=== PATIENT | female | born 1960 | race Caucasian/White ===

== ENCOUNTER 2017-02-08 13:08 | Observation (INO) | payer BC ==
[~2017-02-08] VITALS: Ht 175.3 cm; Wt 109.8 kg
[2017-02-08] VITALS (7 sets, daily range): BP systolic 128–166; BP diastolic 48–75
[~2017-02-08 13:08] MED LIST: AMLO5TAB2 PO; CALC-697 PO; CYCL10TA9 PO; GLIP10TA13 PO; HYDR-3583 PO; HYDR-3816 PO; LOSA100T7 PO; METF-380 PO; METH1TAB19 PO; NITR-65 PO; PGLT30T PO; SULF1TAB38 PO; [UNRECOGNIZED DRUG - OTHER] SQ
[2017-02-08] MEDS ORDERED: ATEN100T PO (13:19)
[2017-02-08] MEDS ORDERED: NITROGLYCERIN 2% OINT 1 GM UNIT DOSE PACKET TOP ONE (13:45)
[2017-02-08] MEDS ORDERED: ASPIRIN 81 MG CHEW (CHILDREN'S ASA) PO ONE (13:45)
--- NOTE | 2017-02-08 14:03 | ED Chest Pain ---
General Chief Complaint: Respiratory Problems Stated Complaint: SOA Source: patient Exam Limitations: no limitations History of Present Illness Time seen by provider: 13:20 Initial Comments Here with report of shortness of air and chest pain. States that she had chest pain for several minutes morning that was central and she described as a tightness. She has been started on new blood pressure medicine, atenolol, that is not helping her blood pressure. She has been seen by the eye doctor and noted to have to retinal hemorrhages. She follows with Dr. Gorman. Heart rate is in the 40s. Patient states that she feels tired and not well since starting the blood pressure medicine. Timing/Duration: intermittent, 5-6 days Severity/Quality: mild, moderate, tightness Location: central Radiation: no radiation Activities at Onset: activity Prior CP/Workup: no prior chest pain Modifying Factors: worse with exercise ASA po SCALER: No NTG SL SCALER: No Associated Symptoms: No abdominal pain, No back pain, No nausea/vomiting, shortness of breath, No weakness Allergies and Home Medications Allergies Coded Allergies: amoxicillin trihydrate (Unverified Allergy, Unknown, 05/06/11) iodine (Unverified Allergy, Unknown, 05/06/11) Home Medications Amlodipine Besylate 5 Mg Tablet, 5 MG PO DAILY, (Reported) Atenolol 100 Mg Tablet, #90 (Reported) Calcium Carbonate/Vitamin D3 1 Each Tablet, 1 EACH PO BID, (Reported) Cyclobenzaprine HCl 10 Mg Tablet, 10 MG PO Q8H PRN for SPASMS, #14 Ref 0 Prescribed by: ALO BEY on 11/10/152047 Glipizide 10 Mg Tablet, 1 EACH PO DAILY, (Reported) Hydrocodone/Acetaminophen 1 Each Tablet, 1 EACH PO Q4H PRN for PAIN, #20 Ref 0 Prescribed by: ALO BEY on 11/10/152047 Losartan Potassium 100 Mg Tablet, 100 MG PO DAILY, (Reported) Metformin Hcl 1,000 Mg Tablet, 1 EACH PO BID, (Reported) Pioglitazone Hcl 30 Mg Tab, 30 MG PO DAILY, (Reported) Review of Systems Constitutional: see HPI EENTM: No Symptoms Reported Respiratory: See HPI, Shortness of Air, SOA at Rest, Denies Wheezing Cardiovascular: Chest Pain, Denies Palpitations Gastrointestinal: Denies Abdominal Pain, Denies Nausea, Denies Vomiting Genitourinary: No Symptoms Reported Musculoskeletal: no symptoms reported Skin: no symptoms reported Psychiatric/Neurological: No Symptoms Reported Endocrine: No Symptoms Reported All Other Systems Reviewed Negative Unless Noted: Yes Past Rvdsdqx-Dnisir-Adyopk Hx Patient Social History Alcohol Use: Denies Use Recreational Drug Use: No Smoking Status: Never a Smoker Former Smoker/When Quit: Nov 15, 2011 Recent Hopitalizations: No Immunizations Up To Date Tetanus Booster (TDap): More than 5yrs Date of Pneumonia Vaccine: Feb 26, 2014 Seasonal Allergies Seasonal Allergies: No Surgeries HX Surgeries: Yes (Fx left arm, Fx right ankle, arthroscopy left knee) Respiratory Hx Respiratory Disorders: Yes Respiratory Disorders: Sleep Apnea Cardiovascular Hx Cardiac Disorders: Yes Cardiac Disorders: Hypertension Neurological Hx Neurological Disorders: No Reproductive System Hx Reproductive Disorders: No Sexually Transmitted Disease: No Genitourinary Hx Genitourinary Disorders: No Gastrointestinal Hx Gastrointestinal Disorders: Yes Gastrointestinal Disorders: Gastroesophageal Reflux Musculoskeletal Hx Musculoskeletal Disorders: Yes (see surgeries above) Musculoskeletal Disorders: Fractures Endocrine Hx Endocrine Disorders: Yes Endocrine Disorders: Diabetes, Non-Insulin dep HEENT HX ENT Disorders: No Cancer Hx Cancer: No Psychosocial Hx Psychiatric Problems: No Integumentary HX Skin/Integumentary Disorder: No Blood Transfusions Hx Blood Disorders: No Reviewed Nursing Assessment Reviewed/Agree w Nursing PMH: Yes Family Medical History Significant Family History: No Pertinent Family Hx Family Medial History: Cancer 03 FATHER (lung ca) 03 MOTHER (stomach ca) Family history: Cardiovascular disease 03 MOTHER Family history: Diabetes mellitus 09 BROTHER Stroke 03 MOTHER Physical Exam Vital Signs Vital Sign - Last 12Hours 02/08/17 13:08 Temp 97.9 Pulse 45 Resp 18 B/P (MAP) 192/103 O2 Delivery Nasal Cannula Capillary Refill : General Appearance: No Apparent Distress, WD/WN HEENT: PERRL/EOMI, Pharynx Normal Neck: Non Tender, Supple Respiratory: Lungs Clear, Normal Breath Sounds Cardiovascular: No Murmur, Bradycardia Gastrointestinal: Non Tender, Soft Extremity: Normal Range of Motion, Non Tender, No Calf Tenderness, Pedal Edema (1+ to the mid tibia bilateral) Neurologic/Psychiatric: Alert, Oriented x3, No Motor/Sensory Deficits Skin: Normal Color, Warm/Dry Progress/Results/Core Measures Results/Orders Lab Results Laboratory Tests Test 02/08/17 14:16 02/08/17 14:49 Range/Units Sodium Level 139 135-145 MMOL/L Potassium Level 4.3 3.6-5.0 MMOL/L Chloride Level 109 H 98-107 MMOL/L Carbon Dioxide Level 19 L 21-32 MMOL/L Anion Gap 11 5-14 MMOL/L Blood Urea Nitrogen 23 H 7-18 MG/DL Creatinine 0.88 0.60-1.30 MG/DL Estimat Glomerular Filtration Rate > 60 BUN/Creatinine Ratio 26 Glucose Level 141 H 70-105 MG/DL Calcium Level 9.6 8.5-10.1 MG/DL Magnesium Level 1.9 1.8-2.4 MG/DL Total Bilirubin 0.6 0.1-1.0 MG/DL Aspartate Amino Transf (AST/SGOT) 44 H 5-34 U/L Alanine Aminotransferase (ALT/SGPT) 55 0-55 U/L Alkaline Phosphatase 101 40-136 U/L Myoglobin 38.2 10.0-92.0 NG/ML Troponin I < 0.30 <0.30 NG/ML Total Protein 6.7 6.4-8.2 G/DL Albumin 3.8 3.2-4.5 G/DL White Blood Count 8.8 4.3-11.0 10^3/uL Red Blood Count 4.41 4.35-5.85 10^6/uL Hemoglobin 12.6 11.5-16.0 G/DL Hematocrit 38 35-52 % Mean Corpuscular Volume 85 80-99 FL Mean Corpuscular Hemoglobin 29 25-34 PG Mean Corpuscular Hemoglobin Concent 34 32-36 G/DL Red Cell Distribution Width 14.1 10.0-14.5 % Platelet Count 203 130-400 10^3/uL Mean Platelet Volume 11.0 H 7.4-10.4 FL Neutrophils (%) (Auto) 63 42-75 % Lymphocytes (%) (Auto) 29 12-44 % Monocytes (%) (Auto) 7 0-12 % Eosinophils (%) (Auto) 2 0-10 % Basophils (%) (Auto) 0 0-10 % Neutrophils # (Auto) 5.5 1.8-7.8 X 10^3 Lymphocytes # (Auto) 2.5 1.0-4.0 X 10^3 Monocytes # (Auto) 0.6 0.0-1.0 X 10^3 Eosinophils # (Auto) 0.1 0.0-0.3 10^3/uL Basophils # (Auto) 0.0 0.0-0.1 10^3/uL B-Type Natriuretic Peptide 257.3 H <100.0 PG/ML My Orders Orders - ELI MEDRANO MD Cbc With Automated Diff (02/08/17 13:36) Magnesium (02/08/17 13:36) Chest 1 View, Ap/Pa Only (02/08/17 13:36) Ekg Tracing (02/08/17 13:36) Cardiac Profile 1 (02/08/17 13:36) Comprehensive Metabolic Panel (02/08/17 13:36) Myoglobin Serum (02/08/17 13:36) Protime With Inr (02/08/17 13:36) Partial Thromboplastin Time (02/08/17 13:36) O2 (02/08/17 13:36) Monitor-Rhythm Ecg Trace Only (02/08/17 13:36) Lipid Panel (02/09/17 06:00) Aspirin Chewable Tablet (Baby Aspirin Ch (02/08/17 13:45) Saline Lock/Iv-Start (02/08/17 13:36) BNP (02/08/17 13:36) Nitroglycerin Ointment (Nitrobid Ointme (02/08/17 13:45) Hydralazine Injection (Apresoline Inject (02/08/17 16:15) Medications Given in ED Current Medications Medications Dose Ordered Sig/Chetna Route Start Time Stop Time Status Last Admin Dose Admin Aspirin 324 mg ONCE ONCE PO 02/08/17 13:45 02/08/17 13:46 DC 02/08/17 13:45 324 MG Hydralazine HCl 20 mg ONCE ONCE IV 02/08/17 16:15 02/08/17 16:16 DC 02/08/17 16:36 20 MG Nitroglycerin 1 inch ONCE ONCE TOP 02/08/17 13:45 02/08/17 13:46 DC 02/08/17 13:47 1 INCH Vital Signs/I&O Vital Sign - Last 12Hours 02/08/17 13:08 Temp 97.9 Pulse 45 Resp 18 B/P (MAP) 192/103 O2 Delivery Nasal Cannula Progress Note : Progress Note Seen and evaluated. IV, labs, EKG and chest x-ray ordered. ASA 324 mg by mouth. Nitroglycerin paste 1 inch to the chest wall ordered. Monitor patient. Labs reviewed after we're able to finally get labs. We are still unable to get coags. Patient's blood pressure remained elevated despite nitroglycerin. Hydralazine 20 mg IV given. Case discussed with Dr. Vargas at 1610. He accepts patient for admission, observation status. 1651: Discussed case with Dr. Amaral and he accepts patient in consult and agrees with hydralazine. Patient and family agree with plan. ECG Initial ECG Impression Date: Feb 08, 2017 Initial ECG Impression Time: 13:29 Initial ECG Rate: 46 Initial ECG Rhythm: [facility] Diagonstic Imaging: Xray Plain Films/CT/US/NM/MRI: chest Comments NAME: KASSIE VEGA [facility] REC#: [id number] PT STATUS: REG ER : 1960 PHYSICIAN: ELI MEDRANO MD ADMIT DATE: 02/08/17/ER Signed Date of Exam: 02/08/17 CHEST 1 VIEW, AP/PA ONLY EXAMINATION: Portable upright radiograph of the chest. INDICATION: Shortness of breath. COMPARISON: 01/26/2015. FINDINGS: The cardiac size is enlarged. There is mild vascular congestion. No pulmonary edema, however. No effusion or pneumothorax. The mediastinum and kwame appear unremarkable. IMPRESSION: Cardiomegaly with mild vascular congestion. Dictated by: Dictated on workstation # [id number] Dict: 02/08/17 1500 Trans: 02/08/17 1507 [id number] Interpreted by: DOMINGO CALDWELL MD Electronically signed by:DOMINGO CALDWELL MD 02/08/17 1507 Departure Communication Time/Spoke to Admitting Phy: 16:10 Time/Spoke to Consulting Physi: 16:51 Impression Impression: Primary Impression: Malignant hypertension Additional Impression: Chest pain Decision to Admit Reason: Admit from ER (General) Decision to Admit/Date: Feb 08, 2017 Time/Decision to Admit Time: 16:10 Departure-Patient Inst. Referrals: FELICITA GORMAN MD (PCP/Family) Primary Care Physician ELI MEDRANO MD Feb 08, 2017 14:03
[2017-02-08 14:52] LABS: ALANINE AMINOTRANSFERASE 55 U/L (0-55); ALBUMIN 3.8 G/DL (3.2-4.5); ANION GAP 11 MMOL/L (5-14); ASPARTATE AMINO TRANSFERASE 44 U/L (5-34); BILIRUBIN,TOTAL 0.6 MG/DL (0.1-1.0); BLOOD UREA NITROGEN 23 MG/DL (7-18); BUN/CREATININE RATIO 26; CALCIUM 9.6 MG/DL (8.5-10.1); CARBON DIOXIDE 19 MMOL/L (21-32); CHLORIDE 109 MMOL/L (98-107); CREATININE SERUM 0.88 MG/DL (0.60-1.30); GFR ESTIMATED > 60; GLUCOSE 141 MG/DL (70-105); MAGNESIUM 1.9 MG/DL (1.8-2.4); POTASSIUM 4.3 MMOL/L (3.6-5.0); SODIUM 139 MMOL/L (135-145); TOTAL PROTEIN 6.7 G/DL (6.4-8.2)
[2017-02-08 14:59] LABS: MYOGLOBIN SERUM 38.2 NG/ML (10.0-92.0)
[2017-02-08 15:02] LABS: BASOPHILS % (AUTO) 0 % (0-10); EOSINOPHILS # (AUTO) 0.1 10^3/uL (0.0-0.3); EOSINOPHILS % (AUTO) 2 % (0-10); LYMPHOCYTES # (AUTO) 2.5 X 10^3 (1.0-4.0); LYMPHOCYTES % (AUTO) 29 % (12-44); MEAN CORPUSCULAR HEMOGLOBIN 29 PG (25-34); MEAN CORPUSCULAR HGB CONC 34 G/DL (32-36); MEAN CORPUSCULAR VOLUME 85 FL (80-99); MONOCYTES # (AUTO) 0.6 X 10^3 (0.0-1.0); MONOCYTES % (AUTO) 7 % (0-12); NEUTROPHILS # (AUTO) 5.5 X 10^3 (1.8-7.8); NEUTROPHILS % (AUTO) 63 % (42-75); PLATELET COUNT 203 10^3/uL (130-400); RED BLOOD COUNT 4.41 10^6/uL (4.35-5.85); RED CELL DISTRIBUTION WIDTH 14.1 % (10.0-14.5); WHITE BLOOD COUNT 8.8 10^3/uL (4.3-11.0)
--- NOTE | 2017-02-08 15:07 | Diagnostic Imaging Report ---
EXAMINATION: Portable upright radiograph of the chest. INDICATION: Shortness of breath. COMPARISON: 01/26/2015. FINDINGS: The cardiac size is enlarged. There is mild vascular congestion. No pulmonary edema, however. No effusion or pneumothorax. The mediastinum and kwame appear unremarkable. IMPRESSION: Cardiomegaly with mild vascular congestion. Dictated by: Dictated on workstation # [id number]
[2017-02-08] MEDS ORDERED: hydrALAZINE (APESOLINE) 20 MG/ML VIAL IV ONE (16:15)
[2017-02-08] MEDS ORDERED: hydrALAZINE (APRESOLINE) 25 MG TAB PO PRN (20:00)
[2017-02-08 21:07] LABS: INR 1.1 (0.8-1.4); PROTHROMBIN TIME PATIENT 13.4 SEC (12.2-14.7)
[2017-02-08] MEDS ORDERED: NS IV 1000 ML 1,000 ML IV SCH (21:45)
[2017-02-09] VITALS (12 sets, daily range): BP systolic 124–171; BP diastolic 50–82
[2017-02-09 04:03] LABS: BASOPHILS % (AUTO) 0 % (0-10); EOSINOPHILS # (AUTO) 0.2 10^3/uL (0.0-0.3); EOSINOPHILS % (AUTO) 3 % (0-10); LYMPHOCYTES % (AUTO) 28 % (12-44); MEAN CORPUSCULAR HEMOGLOBIN 29 PG (25-34); MEAN CORPUSCULAR HGB CONC 33 G/DL (32-36); MEAN CORPUSCULAR VOLUME 87 FL (80-99); MEAN PLATELET VOLUME 11.1 FL (7.4-10.4); MONOCYTES # (AUTO) 0.6 X 10^3 (0.0-1.0); MONOCYTES % (AUTO) 8 % (0-12); NEUTROPHILS # (AUTO) 4.3 X 10^3 (1.8-7.8); NEUTROPHILS % (AUTO) 61 % (42-75); PLATELET COUNT 186 10^3/uL (130-400); RED BLOOD COUNT 4.14 10^6/uL (4.35-5.85); RED CELL DISTRIBUTION WIDTH 14.3 % (10.0-14.5); WHITE BLOOD COUNT 7.1 10^3/uL (4.3-11.0)
[2017-02-09 04:31] LABS: ALANINE AMINOTRANSFERASE 46 U/L (0-55); ALBUMIN 3.5 G/DL (3.2-4.5); ANION GAP 10 MMOL/L (5-14); ASPARTATE AMINO TRANSFERASE 35 U/L (5-34); BILIRUBIN,TOTAL 0.8 MG/DL (0.1-1.0); BLOOD UREA NITROGEN 22 MG/DL (7-18); BUN/CREATININE RATIO 31; CARBON DIOXIDE 20 MMOL/L (21-32); CHLORIDE 110 MMOL/L (98-107); CHOLESTEROL 144 MG/DL (< 200); DIRECT LDL 76 MG/DL (1-129); GFR ESTIMATED > 60; GLUCOSE 144 MG/DL (70-105); POTASSIUM 4.6 MMOL/L (3.6-5.0); SODIUM 140 MMOL/L (135-145); TOTAL PROTEIN 6.2 G/DL (6.4-8.2); TRIGLYCERIDES 210 MG/DL (<150); VLDL CHOLESTEROL 42 MG/DL (5-40)
[2017-02-09] MEDS: inSUlin ASPART (NovoLOG) 1 UNIT/0.01 ML (CHARGE PER UNIT) SC SCH ×4 (05:32→20:54)
[2017-02-09] MEDS ORDERED: LOSA50TA36 PO (09:12)
[2017-02-09] MEDS ORDERED: NAPR500T3 PO (09:12)
[2017-02-09] MEDS ORDERED: MULT-35 PO (09:12)
--- NOTE | 2017-02-09 10:54 | Consultation-Cardiology ---
HPI-Cardiology Cardiology Consultation: Date of Consultation 02/09/17 Date of Admission 02-08-17 Attending Physician Antwon Vargas MD Admitting Physician Juan Gorman MD Consulting Physician [facility] RODRIGUEZ HPI: Chief Complaint: Chest pain Uncontrolled hypertension Ms. Vega is a 56 year old female admitted to ICU 4 from the ED. She reports that her blood pressure has been running high. She states she had been to see her PCP and he told her to take Atenolol 100mg a day. She reports her blood pressure was still running high at home so she began taking the Atenolol twice a day. She reports increasing shortness of breath over the course of the last few days which has been affecting her ability to carry out her normal activities of daily living. She states yesterday she was up cleaning around her house and she had left sided, localized chest tightness. She states she felt short of breath. She states she sat down and the discomfort resolved. She reports the discomfort lasted for a few minutes. She states she has not had chest discomfort before. She reports she has had no further chest discomfort since admission. She denies any lower extremity edema. She is a poor historian. No c/o palpitations, syncope or near syncope. No c/o fever or chills. No c/o n/v/d. Review of Systems-Cardiology Review of Systems Constitutional: As described under HPI Eyes: No blurred vision, No drainage, No pain, No vision change Ears/Nose/Throat: No ear discharge, No ear pain, No nasal drainage, No ulcerations Respiratory: As described under HPI Cardiovascular: As described under HPI Gastrointestinal: No constipation, No diarrhea, No nausea, No vomiting, No stool coloration changes Genitourinary: No dysuria, No discharge, No frequency, No hematuria, No urgency Skin: No rash, No skin related problems, No ulcerations Psychiatric/Neurological: No anxiety, No depression, No focal weakness, No seizure, No syncope Hematologic: No bleeding abnormalities All Other Systems Reviewed Negative Unless Noted: Yes FFA-Dklgdw-Ixhzyy Hx Patient Social History Alcohol Use: Denies Use Recreational Drug Use: No Smoking Status: Never a Smoker Former smoker/When Quit: Nov 15, 2011 Recent Foreign Travel: No Recent Infectious Disease Expo: No Hospitalization with Isolation: Denies Physical Abuse Screen: No Sexual Abuse: No Immunizations Up To Date Tetanus Booster (TDap): More than 5yrs Date of Pneumonia Vaccine: Feb 26, 2014 Past Medical History PMH As described under Assessment. Family Medical History Family Medical History: She reports her mother had her first RI when she was in her late 50's. Ace reports her mother had a CVA. Family History: Cancer 03 FATHER (lung ca) 03 MOTHER (stomach ca) Family history: Cardiovascular disease 03 MOTHER Family history: Diabetes mellitus 09 BROTHER Stroke 03 MOTHER Allergies and Home Medications Allergies Coded Allergies: amoxicillin trihydrate (Unverified Allergy, Unknown, 05/06/11) iodine (Unverified Allergy, Unknown, 05/06/11) Home Medications Amlodipine Besylate 5 Mg Tablet, 5 MG PO BID, (Reported) Atenolol 100 Mg Tablet, 100 MG PO BID, (Reported) Glipizide 10 Mg Tablet, 10 MG PO DAILY, (Reported) Losartan Potassium 50 Mg Tablet, 50 MG PO BID, (Reported) Metformin Hcl 1,000 Mg Tablet, 1,000 MG PO BID WITH MEALS, (Reported) Multivitamin 1 Each Tablet, 1 TAB PO DAILY, (Reported) Naproxen 500 Mg Tablet, 500 MG PO BID, (Reported) Physical Exam-Cardiology Physical Exam Vital Signs/I&O Vital Sign - Last 12Hours 02/09/17 02/09/17 02/09/17 02/09/17 02:00 02:00 03:00 04:00 Pulse 43 42 43 Resp 13 B/P (MAP) 124/56 128/82 129/52 Pulse Ox 92 93 95 O2 Delivery Nasal Cannula Nasal Cannula Nasal Cannula Nasal Cannula O2 Flow Rate 2.00 2.00 2.00 2.00 02/09/17 02/09/17 02/09/17 02/09/17 04:04 05:00 06:00 07:00 Temp 98.3 Pulse 47 44 44 B/P (MAP) 155/56 132/50 Pulse Ox 96 98 O2 Delivery Nasal Cannula Nasal Cannula Nasal Cannula O2 Flow Rate 2.00 2.00 2.00 02/09/17 02/09/17 08:00 11:52 Temp 97.5 98.3 Pulse 45 48 Resp 20 20 B/P (MAP) 140/54 132/50 Pulse Ox 98 96 O2 Delivery Room Air Room Air Intake and Output 02/09/17 00:00 Intake Total 450 ml Balance 450 ml Capillary Refill : Less Than 3 Seconds Constitutional: appears stated age, No apparent distress, well-developed, well- nourished HEENT: PERRL, No discharge, hearing is well preserved, oral hygience is good, No ulceration, No xanthelasmas are seen Neck: No carotid bruit, carotid pulses are 2 + bilaterally Cardiovascular: regular rate-rhythm, No JVD, S1 and S2 Gastrointestinal: No tender, soft, round, audible bowel sounds, No spleenomegaly Rectal: deferred Extremities: No clubbing, No cyanosis, No significant edema Neurologic/Psychiatric: alert, oriented x 3, power is 5/5 both on sides Skin: No rash, No ulcerations Data Review Labs Laboratory Tests 02/08/17 14:16: Sodium Level 139, Potassium Level 4.3, Chloride Level 109H, Carbon Dioxide Level 19L, Anion Gap 11, Blood Urea Nitrogen 23H, Creatinine 0.88, Estimat Glomerular Filtration Rate > 60, BUN/Creatinine Ratio 26, Glucose Level 141H, Calcium Level 9.6, Magnesium Level 1.9, Total Bilirubin 0.6, Aspartate Amino Transf (AST/SGOT) 44H, Alanine Aminotransferase (ALT/SGPT) 55, Alkaline Phosphatase 101, Myoglobin 38.2, Troponin I < 0.30, Total Protein 6.7, Albumin 3.8 02/08/17 14:49: White Blood Count 8.8, Red Blood Count 4.41, Hemoglobin 12.6, Hematocrit 38, Mean Corpuscular Volume 85, Mean Corpuscular Hemoglobin 29, Mean Corpuscular Hemoglobin Concent 34, Red Cell Distribution Width 14.1, Platelet Count 203, Mean Platelet Volume 11.0H, Neutrophils (%) (Auto) 63, Lymphocytes (%) (Auto) 29 , Monocytes (%) (Auto) 7, Eosinophils (%) (Auto) 2, Basophils (%) (Auto) 0, Neutrophils # (Auto) 5.5, Lymphocytes # (Auto) 2.5, Monocytes # (Auto) 0.6, Eosinophils # (Auto) 0.1, Basophils # (Auto) 0.0, B-Type Natriuretic Peptide 257.3H 02/08/17 20:48: Troponin I < 0.30, Prothrombin Time 13.4, INR Comment 1.1, Activated Partial Thromboplast Time 25 02/08/17 21:42: Glucometer 183H 02/09/17 03:30: White Blood Count 7.1, Red Blood Count 4.14L, Hemoglobin 11.8, Hematocrit 36, Mean Corpuscular Volume 87, Mean Corpuscular Hemoglobin 29, Mean Corpuscular Hemoglobin Concent 33, Red Cell Distribution Width 14.3, Platelet Count 186, Mean Platelet Volume 11.1H, Neutrophils (%) (Auto) 61, Lymphocytes (%) (Auto) 28 , Monocytes (%) (Auto) 8, Eosinophils (%) (Auto) 3, Basophils (%) (Auto) 0, Neutrophils # (Auto) 4.3, Lymphocytes # (Auto) 2.0, Monocytes # (Auto) 0.6, Eosinophils # (Auto) 0.2, Basophils # (Auto) 0.0, Sodium Level 140, Potassium Level 4.6, Chloride Level 110H, Carbon Dioxide Level 20L, Anion Gap 10, Blood Urea Nitrogen 22H, Creatinine 0.70, Estimat Glomerular Filtration Rate > 60, BUN /Creatinine Ratio 31, Glucose Level 144H, Calcium Level 9.0, Total Bilirubin 0.8 , Aspartate Amino Transf (AST/SGOT) 35H, Alanine Aminotransferase (ALT/SGPT) 46 , Alkaline Phosphatase 88, Total Protein 6.2L, Albumin 3.5, Triglycerides Level 210H, Cholesterol Level 144, LDL Cholesterol Direct 76, VLDL Cholesterol 42H, HDL Cholesterol 29L 02/09/17 10:22: Glucometer 164H Radiology NAME: KASSIE VEGA [facility] REC#: [id number] PT STATUS: REG ER : 1960 PHYSICIAN: ELI MEDRANO MD ADMIT DATE: 02/08/17/ER Signed Date of Exam: 02/08/17 CHEST 1 VIEW, AP/PA ONLY EXAMINATION: Portable upright radiograph of the chest. INDICATION: Shortness of breath. COMPARISON: 01/26/2015. FINDINGS: The cardiac size is enlarged. There is mild vascular congestion. No pulmonary edema, however. No effusion or pneumothorax. The mediastinum and kwame appear unremarkable. IMPRESSION: Cardiomegaly with mild vascular congestion. Dictated by: Dictated on workstation # [id number] Dict: 02/08/17 1500 Trans: 02/08/17 1507 [id number] Interpreted by: DOMINGO CALDWELL MD Electronically signed by:DOMINGO CALDWELL MD 02/08/17 1507 ECG Impression ECG Comment SB with RBBB A/P-Cardiology Assessment/Admission Diagnosis Chest discomfort of undetermined etiology Hypertension LVH with RBBB per EKG Moderate left ventricular hypertrophy noted diffusely with normal systolic function. Estimated ejection fraction 60%. Diastolic dysfunction is suggested by Doppler. Left atrial enlargement with prominent right atrium. Mild mitral and tricuspid regurgitation. Estimated pulmonary artery pressure of 30 mmHg. Per echocardiogram by Dr. Read in July 2015 No evidence of significant myocardial ischemia or infarction on this study. Normal global left ventricular systolic function with an ejection fraction of 68 %. Normal regional wall motion. Per MPI of April 2012 Sleep apnea - untreated per pt DM II Family h/o early CAD in her mother (RI in her late 50's) Obesity with BMI of 35.1 Discussion and Recomendations Chest discomfort of undetermined etiology. Multiple risk factors as listed above. We advise further cardiac evaluation with a cardiac cath. Echocardiogram to evaluate structure and LVEF. D/t sinus bradycardia BB is already being held. We will restart her home dose of ARB and Norvasc for blood pressure control. Continue to monitor on tele. Further recommendations will be based on her hospital course. We would like to thank the Hospitalist service for this consult. This consult is being scribed by Ja Emerson APRN on behalf of after discussion regarding plan of care. Clinical Quality Measures AMI/AHF: ASA po Prior to arrival: No DVT/VTE Risk/Contraindication: Risk Factor Score Per Nursin RFS Level Per Nursing on Admit: 2=Moderate Physician Assessment Physician Assessment Lungs: clear Cor: reg A&R * As documented in our note above * Given symptoms suggestive on new-onset angina, in the presence of multiple cor risk factors, card cath appears reasonable. I spoke with her regarding rationale, risks, benefits, potential complications, and alternatives of card cath and possible ad hoc cor intervention. She understands and provides informed consent. Given h/o rash on iodinated contrast, we have pre-treated with iv Solu-medrol * Further recs to base on results of card cath [facility] EMERSON Feb 09, 2017 10:54 BENITA MCLAUGHLIN MD [facility] Feb 09, 2017 13:12
[2017-02-09] MEDS ORDERED: NS IV 1000 ML 1,000 ML IV SCH ×2 (12:00→14:32)
[2017-02-09] MEDS ORDERED: CATHETER FLUSH 10 ML SYR IV PRN (12:00)
[2017-02-09] MEDS ORDERED: diphenhydrAMINE 25 MG TAB (BENADRYL) PO SCH (12:00)
[2017-02-09] MEDS ORDERED: methylPREDNISolone 125 MG (Solu-MEDROL) VIAL IV SCH (12:00)
[2017-02-09] MEDS ORDERED: FAMOTIDINE 20 MG (PEPCID) TABLET PO SCH (12:00)
[2017-02-09] MEDS ORDERED: fentaNYL INJECTION 100 MCG/2 ML AMP ONE (12:25)
[2017-02-09] MEDS ORDERED: MIDAZOLAM 5 MG/5 ML (VERSED) VIAL ONE (12:25)
[2017-02-09] MEDS ORDERED: HEParin (CATH LAB) 2,000 ML IV ONE (12:28)
[2017-02-09] MEDS ORDERED: LIDOCAINE 1% INJ 20 ML (XYLOCAINE) VIAL ONE (12:28)
[2017-02-09] MEDS ORDERED: NS IV 1000 ML 1,000 ML ONE (12:28)
--- NOTE | 2017-02-09 13:16 | History & Physical-Hospitalist ---
HPI History of Present Illness: HPI/Chief Complaint The patient is a 56-year-old white female patient of Dr. Markham. She presented to the emergency room yesterday afternoon with chest pain, headache, and elevated blood pressure. She reports that she had recently had treatment in [place] by a retinal specialist for hemorrhages. She states that she has been diabetic since age 16 although she has never taken insulin except in periods of stress. She had been hypertensive but recently this seems to have accelerated. Her retinal specialist was concerned that her blood pressure was that high. She had apparently had amlodipine and atenolol added to her regimen. This had added some improvement but not enough. While in the emergency room Dr. Reid gave her an additional dose of beta charley which dropped her heart rate from the 60s to the 40s. It has remained at that point. The chest pain that she described had cleared in the emergency room. At the time of my visit her blood pressure was 170/51 with a heart rate in the 40s. Source: patient Exam Limitations: no limitations Date Seen 02/09/17 Attending Physician Antwon Winters MD PCP Juan Gorman MD Referring Physician Date of Admission Feb 08, 2017 at 16:45 Home Medications & Allergies Home Medications Reviewed patient Home Medication Reconciliation Form Allergies Allergies Coded Allergies amoxicillin trihydrate (Unverified Allergy, Unknown, 05/06/11) iodine (Unverified Allergy, Unknown, 05/06/11) Past Cgagitz-Geoumh-Gnjwum Hx Patient Social History Alcohol Use: Denies Use Recreational Drug Use: No Smoking Status: Never a Smoker Former smoker/When Quit: Nov 15, 2011 Physical Abuse Screen: No Sexual Abuse: No Recent Foreign Travel: No Contact w/other who traveled: No Recent Hopitalizations: No Recent Infectious Disease Expo: No Immunizations Up To Date Tetanus Booster (TDap): More than 5yrs Date of Pneumonia Vaccine: Feb 26, 2014 Seasonal Allergies Seasonal Allergies: No Surgeries HX Surgeries: Yes (Fx left arm, Fx right ankle, arthroscopy left knee) Respiratory Hx Respiratory Disorders: Yes Cardiovascular Hx Cardiovascular Disorders: Yes Cardiac Disorders: Hypertension Neurological Hx Neurological Disorders: No Reproductive System Hx Reproductive Disorders: No Sexually Transmitted Disease: No Genitourinary Hx Genitourinary Disorders: No Gastrointestinal Hx Gastrointestinal Disorders: Yes Gastrointestinal Disorders: Gastroesophageal Reflux Musculoskeletal Hx Musculoskeletal Disorders: Yes (see surgeries above) Musculoskeletal Disorders: Fractures Endocrine Hx Endocrine Disorders: Yes Endocrine Disorders: Diabetes, Non-Insulin dep HEENT HX ENT Disorders: No Cancer Hx Cancer: No Psychosocial Hx Psychiatric Problems: No Integumentary HX Skin/Integumentary Disorder: No Blood Transfusions Hx Blood Disorders: No Reviewed Nursing Assessment Reviewed/Agree w Nursing PMH: Yes Family Medical History Significant Family History: No Pertinent Family Hx Family Hx: Cancer 03 FATHER (lung ca) 03 MOTHER (stomach ca) Family history: Cardiovascular disease 03 MOTHER Family history: Diabetes mellitus 09 BROTHER Stroke 03 MOTHER Review of Systems Constitutional: see HPI EENTM: other (retinal vascular problems) Respiratory: no symptoms reported Cardiovascular: see HPI, chest pain Gastrointestinal: no symptoms reported Genitourinary: no symptoms reported Musculoskeletal: no symptoms reported Skin: no symptoms reported Psychiatric/Neurological: No Symptoms Reported Physical Exam Physical Exam Vital Signs Vital Sign - Last 12Hours 02/08/17 02/08/17 13:08 17:50 Temp 97.9 Pulse 45 Resp 18 B/P (MAP) 192/103 Pulse Ox 95 O2 Delivery Nasal Cannula Capillary Refill : Less Than 3 Seconds General Appearance: No Apparent Distress, WD/WN Eyes: Bilateral Eye Normal Inspection HEENT: Normal ENT Inspection Neck: Normal Inspection Respiratory: Chest Non Tender, Lungs Clear, Normal Breath Sounds, No Accessory Muscle Use, No Respiratory Distress Cardiovascular: Other (Bradycardia) Gastrointestinal: Normal Bowel Sounds, No Organomegaly, No Pulsatile Mass, Non Tender, Soft, Other (obese) Extremity: Other (bilateral 2 plus posterior tibial pulses) Skin: Normal Color, Warm/Dry Lymphatic: No Adenopathy Results Results/Procedures Lab Laboratory Tests 02/08/17 14:16 02/08/17 14:49 02/09/17 03:30 Assessment/Plan Admission Diagnosis 1.accelerated hypertension. 2.diabetes mellitus type II of 40 years duration. 3.chest pain. 4.retinal microaneurysms/bleed Assessment and Plan Increased dose of beta blockers produced bradycardia. Cardiac consultation is proceeding and angiography is suggested. Clinical Quality Measures AMI/AHF: ASA po Prior to arrival: No DVT/VTE Risk/Contraindication: Risk Factor Score Per Nursin RFS Level Per Nursing on Admit: 2=Moderate ANTWON WINTERS MD Feb 09, 2017 13:15
[2017-02-09] MEDS ORDERED: diphenhydrAMINE 50 MG/ML INJ (BENADRYL) ONE (13:30)
[2017-02-09] MEDS ORDERED: FAMOTIDINE 20MG/2ML IV (PEPCID) ONE (13:31)
[2017-02-09] MEDS ORDERED: PATIENT MAY USE OWN MEDS, ALL PO SCH (14:45)
[2017-02-09] MEDS: amLODIPine 5 MG (NORVASC) TAB PO SCH (20:54)
[2017-02-09] MEDS: LOSARTAN 50 MG (COZAAR) TAB PO SCH (20:54)
[2017-02-10 00:15] VITALS: BP 153/63
[2017-02-10 04:27] VITALS: BP 160/63
[2017-02-10] MEDS: inSUlin ASPART (NovoLOG) 1 UNIT/0.01 ML (CHARGE PER UNIT) SC SCH (05:12)
[2017-02-10 07:56] VITALS: BP 164/58
[2017-02-10] MEDS: amLODIPine 5 MG (NORVASC) TAB PO SCH (08:16)
[2017-02-10] MEDS: LOSARTAN 50 MG (COZAAR) TAB PO SCH (08:16)
--- NOTE | 2017-02-10 08:29 | Progress Note-Cardiology ---
Cardiology SOAP Progress Note Subjective: States she feels better today. No c/o right groin discomfort. Wants to go home. No c/o CP or SOB. No c/o palpitations, syncope or near syncope. Objective: I&O/Vital Signs Vital Sign - Last 12Hours 02/10/17 02/10/17 07:00 07:56 Temp 98.6 Pulse 58 56 Resp 18 B/P (MAP) 164/58 Pulse Ox 95 O2 Delivery Room Air Intake and Output 02/10/17 00:00 Intake Total 450 ml Balance 450 ml Weight (Pounds): 242 Weight (Ounces): 1.0 Weight (Calculated Kilograms): 109.804045 Side: right Groin site without hematoma: Yes Condition: DP/PT pulses palpable, extremity w/d/p Bruising: mild bruising Constitutional: appears stated age, No apparent distress, well-developed, well- nourished Cardiovascular: regular rate-rhythm, No JVD, S1 and S2 Gastrointestional: No tender, soft, round, audible bowel sounds, No spleenomegaly Extremities: No clubbing, No cyanosis, No significant edema Neurologic/Psychiatric: alert, oriented x 3, power is 5/5 both on sides Skin: No rash, No ulcerations Results/Procedures: Labs Laboratory Tests 02/09/17 20:33: Glucometer 332H 02/10/17 05:04: Glucometer 276H Procedures S/P cardiac cath of 02-09-17. Please refer to Dr. Amaarl's cardiac cath report for details. A/P: Assessment: Cardiac cath of 02-09-17 showed no angiographically significant CAD; LVEF 60-65% Episode of chest discomfort of undetermined etiology - does not appear cardiac in origin based on cardiac cath of 02-09-17 Hypertension. No evidence of any significant renal artery stenosis on abdominal aortic angio of 02-09-17 LVH with RBBB per EKG Moderate left ventricular hypertrophy noted diffusely with normal systolic function. Estimated ejection fraction 60%. Diastolic dysfunction is suggested by Doppler. Left atrial enlargement with prominent right atrium. Mild mitral and tricuspid regurgitation. Estimated pulmonary artery pressure of 30 mmHg. Per echocardiogram by Dr. Read in July 2015 No evidence of significant myocardial ischemia or infarction on this study. Normal global left ventricular systolic function with an ejection fraction of 68 %. Normal regional wall motion. Per MPI of April 2012 Sleep apnea - untreated per pt DM II Family h/o early CAD in her mother ([place] in her late 50's) Obesity with BMI of 35.1 Plan: Episode of chest discomfort does not appear cardiac in nature based on cardiac cath of 02-09-17. Blood pressure not well controlled - Not a good candidate for BB d/t what seems to be sinus bradycardia at baseline which is made more prominent with BB. Will add dyazide. BMP in a week Advise treatment of sleep apnea as an outpatient Risk factor modification discussed Out pt f/u Physician Assessment Physician Assessment Lungs: clear Cor: reg A&R * As documented in our note above that I updated at the time of this writing * I spoke with her in detail and explained the findings of card cath and aortic angio * I reviewed and recommend cor risk factor modification * I reviewed management plan for hypertension * I advised close outpatient f/u, including lab work after initiation or recent meds * I answered her questions in detail Clinical Quality Measures AMI/AHF: ASA po Prior to arrival: [facility] Jarrett Feb 10, 2017 08:29 BENITA AMARAL MD FACP FAC CCDS Feb 10, 2017 17:04
[2017-02-10] MEDS ORDERED: TRIA1TAB5 PO (08:44)
[2017-02-10] MEDS ORDERED: TRIAMTERENE/HCTZ 75-50 (MAXZIDE,DYAZIDE) TABLET PO SCH (09:00)
--- NOTE | 2017-02-10 10:50 | Discharge Summary-Hospitalist ---
Diagnosis/Chief Complaint Date of Admission Feb 08, 2017 at 16:45 Date of Discharge Feb 10, 2017 at 10:00 Discharge Date: Feb 10, 2017 Admission Diagnosis 1.accelerated hypertension. 2.diabetes mellitus type II of 40 years duration. 3.chest pain. 4.retinal microaneurysms/bleed Discharge Diagnosis 1.accelerated hypertension. 2.diabetes mellitus type II of 40 years duration. 3.chest pain w/negative cardiac cath 02/09/[address] Amaral. 4.retinal microaneurysms/bleed Reason Hospital Visit/Course The patient is a 56-year-old white female patient of Dr. Markham. She presented to the emergency room yesterday afternoon with chest pain, headache, and elevated blood pressure. She reports that she had recently had treatment in [place] by a retinal specialist for hemorrhages. She states that she has been diabetic since age 16 although she has never taken insulin except in periods of stress. She had been hypertensive but recently this seems to have accelerated. Her retinal specialist was concerned that her blood pressure was that high. She had apparently had amlodipine and atenolol added to her regimen. This had added some improvement but not enough. While in the emergency room Dr. Reid gave her an additional dose of beta charley which dropped her heart rate from the 60s to the 40s. It has remained at that point. The chest pain that she described had cleared in the emergency room. At the time of my visit her blood pressure was 170/51 with a heart rate in the 40s. 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 Cardiac meds arranged. Patient Interview: Pt states that she is ready to go home. Pt's PCP is Dr. Gorman and Dr. 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 Pt uses [facility]. Pt plans to drive herself home. Pt states that she does not need any Insulin. AFVSS, Pleasant, O x 3 RRR, CTAB no edema Plan: Review meds DC with close follow-ups with Drs. Gorman and Munir Scribed by Mannie Chavis under the direct supervision of Dr. Winter. Discharge Summary Discharge Physical Examination Allergies: Coded Allergies: amoxicillin trihydrate (Unverified Allergy, Unknown, 05/06/11) iodine (Unverified Allergy, Unknown, 05/06/11) Vitals & I&Os Vital Signs Date Time Temp Pulse Resp B/P (MAP) Pulse Ox O2 Delivery O2 Flow Rate FiO2 02/10/17 07:56 98.6 56 18 164/58 95 Room Air 02/09/17 06:00 2.00 Hospital Course Labs (last 24 hrs) Laboratory Tests 02/09/17 20:33: Glucometer 332H 02/10/17 05:04: Glucometer 276H Pending Labs Laboratory Tests 02/10/17 05:04: Glucometer 276 Discharge Home Medications: Active Scripts Active Triamterene-Hctz 75-50 mg Tab (Triamterene/Hydrochlorothiazid) 1 Each Tablet 0.5 Ea PO DAILY Reported Daily Multiple Vitamin (Multivitamin) 1 Each Tablet 1 Tab PO DAILY Losartan Potassium 50 Mg Tablet 50 Mg PO BID Amlodipine Besylate 5 Mg Tablet 5 Mg PO BID Glipizide 10 Mg Tablet 10 Mg PO DAILY Metformin 1000 Mg (Metformin HCl) 1,000 Mg Tablet 1,000 Mg PO BID WITH MEALS Instructions to patient/family Please see electonic discharge instructions given to patient. Clinical Quality Measures AMI/AHF: ASA po Prior to arrival: No DVT/VTE Risk/Contraindication: Risk Factor Score Per Nursin RFS Level Per Nursing on Admit: 2=Moderate TERRENCE WINTER DO Feb 10, 2017 10:50
--- NOTE | 2017-02-10 11:24 | CARDIAC CATHETERIZATION ---
PROCEDURE PHYSICIAN: BENITA MCLAUGHLIN DATE OF PROCEDURE: 02/08/2017 Carlota Trevino Is a 56-year-old lady who was hospitalized with symptoms of unstable angina and malignant hypertension. She has multiple coronary artery disease risk factors. Cardiac catheterization was carried out today after having obtained an informed consent. PROCEDURE: She is brought to the cardiac catheterization in a fasting state. She was treated with intravenous steroids, diphenhydramine and famotidine; this is because she has a history of contrast allergy consisting of a rash. The right groin was prepared and draped in the usual sterile fashion. 1% lidocaine was used for local anesthesia. Modified Seldinger technique was used to advance a 5-Albanian sheath in the right femoral artery. Angiography of the right femoral artery was carried out through the sheath. A 5-Albanian JL4 catheter was used for left coronary angiography. A 5-Albanian JR4 was used for the right coronary angiography. A 5-Albanian pigtail catheter was used for left heart catheterization, left ventricular angiography. A pigtail catheter was pulled back to the aortic arch angiography was performed. Pigtail catheter was pulled back to the level of L1 and abdominal aortic angiography was performed. The catheter was removed. Mynx was used to achieve hemostasis. The patient tolerated the procedure well. HEMODYNAMICS: Left ventricular end diastolic pressure following coronary angiography was 21 mmHg. There was no significant pressure gradient on pullback across the aortic valve. Ascending aortic pressure was 156/57 with a mean of 94 mmHg. LEFT VENTRICULAR ANGIOGRAPHY: Left ventricular angiography was carried out in the right anterior oblique projection. Global left ventricular systolic function is normal. No regional wall motion abnormalities are seen. Left ventricular ejection fraction is approximately 65%. There does not appear to be significant mitral regurgitation. AORTIC ARCH ANGIOGRAPHY: Aortic arch angiography did not indicate any significant thoracic aortic aneurysm or dissection. The neck arteries, to the extent seen, do not exhibit any significant disease. ABDOMINAL AORTIC ANGIOGRAPHY: Abdominal aortic angiography did not indicate any distinct abdominal aortic aneurysm or dissection. The mesenteric vessels and the renal vessels do not exhibit significant stenosis, to the extent seen. CORONARY ANGIOGRAPHY: The left main coronary artery, left anterior descending artery, left circumflex artery, right coronary artery are all angiographically normal. Right coronary artery is dominant. CONCLUSIONS: 1. Angiographically normal coronary arteries. 2. Normal global left ventricular systolic function with an ejection fraction of approximately 60 to 65%. 3. Elevated left ventricular end diastolic pressure, indicative of diastolic dysfunction of the left ventricle. 4. No evidence of any abdominal aortic or thoracic aortic aneurysm or dissection. 5. No evidence of any significant renal artery stenosis. DISCUSSION AND RECOMMENDATION: Based of the results of this study, it appears appropriate to continue a conservative approach. Risk factor modification has been reviewed and outpatient follow-up is advised. Job ID: [id number] Dictated Date: 02/09/2017 14:21:03 Sales Store Checker Date: 02/10/2017 11:15:27 / cassy
--- NOTE | 2017-02-11 13:44 | ECHOCARDIOGRAPHY REPORT ---
PROCEDURE PHYSICIAN: BENITA MCLAUGHLIN DATE OF PROCEDURE: 02/09/2017 TWO DIMENSIONAL ECHOCARDIOGRAM REPORT PRIMARY PHYSICIAN: Dr. Gorman OTHER PHYSICIAN: ATTENDING PHYSICIAN: Dr. Vargas REFERRING PHYSICIAN: ORDERING PHYSICIAN: Vanessa Emerson APRN INDICATION FOR THE PROCEDURE: Shortness of breath, chest discomfort MEASUREMENTS DERIVED VALUES LV DIAMETER (LAX) NORMALS NORMALS Diastolic 5.3 (3.6-5.2) Eject. Fract. (60%+/-6%) Systolic (2.3-3.9) Diastolic Vol. % Shortening (0.22-0.42) Systolic Vol. Aortic Root 3.5 IVS THICKNESS Diastolic 1.3 (0.6-1.1) LVPW THICKNESS Diastolic 1.3 (0.6-1.1) LA DIAMETER Systolic 4. (2.1-3.7) DESCRIPTION: Two-dimensional echocardiography shows normal left ventricular systolic function with normal regional wall motion. Aortic, mitral and tricuspid valve leaflets show good leaflet excursion. There is no significant pericardial effusion. There is mild concentric left ventricular hypertrophy. There is no Doppler evidence of any significant valvular stenosis. Doppler imaging indicates trivial, mitral and tricuspid regurgitation. Pulmonary artery systolic pressure is estimated to be within normal limits. CONCLUSION: 1. Mild concentric left ventricular hypertrophy. 2. Normal global left ventricular systolic function with an ejection fraction of approximately 60%. 3. Trivial, mitral and tricuspid regurgitation. 4. No evidence of significant valvular stenosis. 5. Pulmonary artery systolic pressure is estimated to be within normal limits. Job ID: [id number] Dictated Date: 02/11/2017 11:40:09 Hospital Attendant Date: 02/11/2017 13:35:30 / cassy
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
--- OUTSIDE RECORDS SUMMARY | 2017-02-23 19:07 | XMS REPORT | Continuity of Care Document ---
Author Author [facility] Organization [facility] Address Unknown Phone Unavailable Allergies Active Description Code Type Severity Reaction Onset Reported/Identified Relationship to Patient Clinical Status Yes amoxicillin trihydrate [id number] Drug Allergy Unknown N/A 05/06/2011 Yes iodine [id number] Drug Allergy Unknown N/A 05/06/2011 Medications Problems [...] WINTERS MD Ot I16.0 HYPERTENSIVE URGENCY 02/10/2017 CYNHTIA WINTERS MD Ot I45.10 UNSPECIFIED RIGHT BUNDLE-BRANCH BLOCK 02/10/2017 CYNTHIA WINTERS MD Ot I51.7 CARDIOMEGALY 02/10/2017 CYNTHIA WINTERS MD Ot R07.9 CHEST PAIN, UNSPECIFIED 02/10/2017 CYNTHIA WINTERS MD Ot Z68.35 BODY MASS INDEX (BMI) 35.0-35.9, ADULT 02/10/2017 CYNTHIA WINTERS MD Ot Z79.84 PENITENTIARY (CURRENT) USE OF ORAL HYPOGLYC 02/10/2017 CYNTHIA WINTERS MD Ot Z79.899 OTHER PENITENTIARY (CURRENT) DRUG THERAPY 02/17/2017 Ot 786.2 COUGH [...] Status Pt. Type Provider Facility Loc./Unit Complaint [id number] 02/08/2017 16:45:00 2016 10:00:00 DIS Inpatient CYNTHIA WINTERS MD [facility] ICU MALIGNANT HTN,CHEST PAIN [id number] 01/22/2016 15:24:00 2015 14:26:00 DIS Outpatient RONNIE MONTALVO MD [facility] REHAB LUMBAR DDD [id number] 07/16/2015 09:01:00 2014 23:59:59 CLS Outpatient FELICITA SHARP MD [facility] CARD EPISODIC SUDDEN ONSET [id number] 07/12/2015 11:05:00 2014 23:59:59 CLS Outpatient FELICITA SHARP MD [facility] LAB DIZZINESS [id number] 02/25/2014 14:16:00 2013 09:15:00 DIS Inpatient FELICITA SHARP MD [facility] 4TH PERSISTENT N/V [id number] 08/23/2013 09:26:00 2012 23:59:59 CLS Outpatient FELICITA SHARP MD [facility] RAD L KNEE PAIN [id number] 08/18/2013 09:35:00 2012 23:59:59 CLS Outpatient FELICITA SHARP MD [facility] RAD PAIN IN LEFT MEDIAL KNEE [id number] 02/17/2017 10:29:00 ACT Outpatient UMU SANTANA QUOTE CLERK [facility] LAB I10 [id number] 11/10/2015 18:36:00 Document Registration [id number] 07/12/2015 11:05:00 Document Registration [id number] 07/12/2015 11:05:00 Document Registration [id number] 07/12/2015 11:05:00 Document Registration [id number] 07/12/2015 11:05:00 Document Registration [id number] 07/12/2015 11:05:00 Document Registration [id number] 08/04/2012 15:15:00 Document Registration [id number] 08/03/2012 15:32:00 Document Registration [id number] 05/19/2012 08:42:00 Document Registration [id number] 05/06/2012 08:57:00 Document Registration [id number] 12/16/2011 11:19:00 Document Registration [id number] 04/23/2011 12:10:00 Document Registration
== END 2017-02-10 09:26 | disposition home or self-care (01) ==
LOC: DELPENDDIS → EDUNIT# 13:08 → ER 13:10 → UNDOADMOB 16:45 → ICU 16:45 → 4TH 02-09 15:33 → ICU 02-09 15:33 → UNDODISOB 02-10 10:00
PROVIDERS: ADMIT Internal Medicine; ATTEND Internal Medicine
DX: I16.0 Hypertensive urgency (principal); R07.9 Chest pain, unspecified; H35.63 Retinal hemorrhage, bilateral; E11.9 Type 2 diabetes mellitus without complications; I51.7 Cardiomegaly; I45.10 Unspecified right bundle-branch block; G47.30 Sleep apnea, unspecified; E66.9 Obesity, unspecified; Z68.35 Body mass index [BMI] 35.0-35.9, adult; Z79.84 Long term (current) use of oral hypoglycemic drugs; Z79.899 Other long term (current) drug therapy
CPT/HCPCS: 36221; 36415; 71010; 75625; 80053; 80061; 82962; 83735; 83874; 83880; 84484; 85025; 85610; 85730; 93005; 93041; 93306; 93458; 96374; G0378

== ENCOUNTER → 2017-02-17 | Outpatient (CLI) | payer BC ==
[~2017-02-17] MED LIST changes: +ATEN100T PO; +LOSA50TA36 PO; +MULT-35 PO; +NAPR500T3 PO; +TRIA1TAB5 PO
[2017-02-17 11:08] LABS: CALCIUM 10.3 MG/DL (8.5-10.1); CREATININE SERUM 1.37 MG/DL (0.60-1.30); MAGNESIUM 2.2 MG/DL (1.8-2.4); POTASSIUM 4.7 MMOL/L (3.6-5.0)
== END ==
LOC: LAB 10:29
PROVIDERS: ATTEND Nurse Practitioner Family
DX: I10 Essential (primary) hypertension (principal)
CPT/HCPCS: 36415; 80048; 83735

== ENCOUNTER → 2017-03-10 | Outpatient (CLI) | payer BC ==
[2017-03-10 16:16] LABS: CALCIUM 10.1 MG/DL (8.5-10.1); CREATININE SERUM 1.6 MG/DL (0.60-1.30); MAGNESIUM 2.3 MG/DL (1.8-2.4); POTASSIUM 3.8 MMOL/L (3.6-5.0)
== END ==
LOC: LAB 15:27
PROVIDERS: ATTEND Internal Medicine Cardiovascular Disease
DX: I10 Essential (primary) hypertension (principal); E66.09 Other obesity due to excess calories; E11.21 Type 2 diabetes mellitus with diabetic nephropathy; T50.8X1A Poisoning by diagnostic agents, accidental (unintentional), initial encounter
CPT/HCPCS: 36415; 80048; 82310; 83735

== ENCOUNTER → 2017-03-24 | Outpatient (CLI) | payer BC ==
[2017-03-24 09:13] LABS: CALCIUM 9.8 MG/DL (8.5-10.1); CREATININE SERUM 0.97 MG/DL (0.60-1.30); POTASSIUM 4.1 MMOL/L (3.6-5.0)
== END ==
LOC: LAB 08:35
PROVIDERS: ATTEND Nurse Practitioner Family
DX: I10 Essential (primary) hypertension (principal); E11.21 Type 2 diabetes mellitus with diabetic nephropathy
CPT/HCPCS: 36415; 80048

== ENCOUNTER → 2018-06-21 | Outpatient (CLI) | payer BC ==
[~2018-06-21] MED LIST changes: +HYDR-34 PO; -HYDR-3816 PO; +NAPR-915 PO; -NAPR500T3 PO
[2018-06-21 08:13] LABS: BASOPHILS % (AUTO) 0 % (0-10); EOSINOPHILS # (AUTO) 0.2 10^3/uL (0.0-0.3); EOSINOPHILS % (AUTO) 3 % (0-10); HEMATOCRIT 36 % (35-52); HEMOGLOBIN 11.9 G/DL (11.5-16.0); LYMPHOCYTES # (AUTO) 1.8 X 10^3 (1.0-4.0); LYMPHOCYTES % (AUTO) 31 % (12-44); MEAN CORPUSCULAR HEMOGLOBIN 29 PG (25-34); MEAN CORPUSCULAR HGB CONC 33 G/DL (32-36); MEAN CORPUSCULAR VOLUME 86 FL (80-99); MEAN PLATELET VOLUME 10.5 FL (7.4-10.4); MONOCYTES # (AUTO) 0.4 X 10^3 (0.0-1.0); MONOCYTES % (AUTO) 8 % (0-12); NEUTROPHILS # (AUTO) 3.5 X 10^3 (1.8-7.8); NEUTROPHILS % (AUTO) 58 % (42-75); PLATELET COUNT 231 10^3/uL (130-400); RED BLOOD COUNT 4.17 10^6/uL (4.35-5.85); RED CELL DISTRIBUTION WIDTH 13.6 % (10.0-14.5); WHITE BLOOD COUNT 5.9 10^3/uL (4.3-11.0)
[2018-06-21 08:46] LABS: ERYTHROCYTE SEDIMENTATION RATE 47 MM/HR (0-30)
[2018-06-21 08:49] LABS: ALANINE AMINOTRANSFERASE 15 U/L (0-55); ALBUMIN 4.2 GM/DL (3.2-4.5); ALKALINE PHOSPHATASE 89 U/L (40-136); BILIRUBIN,TOTAL 0.7 MG/DL (0.1-1.0); BUN/CREATININE RATIO 32; CALCIUM 10.1 MG/DL (8.5-10.1); CARBON DIOXIDE 25 MMOL/L (21-32); CHLORIDE 104 MMOL/L (98-107); CHOLESTEROL 195 MG/DL (< 200); CREATININE SERUM 0.88 MG/DL (0.60-1.30); GFR ESTIMATED > 60; GLUCOSE 146 MG/DL (70-105); HDL CHOLESTEROL 40 MG/DL (40-60); MAGNESIUM 1.8 MG/DL (1.8-2.4); POTASSIUM 4.3 MMOL/L (3.6-5.0); SODIUM 138 MMOL/L (135-145); TRIGLYCERIDES 169 MG/DL (<150); VLDL CHOLESTEROL 34 MG/DL (5-40)
== END ==
LOC: LAB 07:41
PROVIDERS: ATTEND Internal Medicine Cardiovascular Disease
DX: E11.21 Type 2 diabetes mellitus with diabetic nephropathy (principal); I10 Essential (primary) hypertension; E66.9 Obesity, unspecified
CPT/HCPCS: 36415; 80053; 80061; 83036; 83735; 85025; 85652

== ENCOUNTER → 2019-01-27 | Outpatient (CLI) | payer BC ==
[~2019-01-27] MED LIST changes: -LOSA50TA36 PO; +LOSA50TA63 PO
[2019-01-27 07:20] LABS: BASOPHILS % (AUTO) 0 % (0-10); EOSINOPHILS # (AUTO) 0.2 10^3/uL (0.0-0.3); EOSINOPHILS % (AUTO) 3 % (0-10); HEMATOCRIT 37 % (35-52); HEMOGLOBIN 12.2 G/DL (11.5-16.0); LYMPHOCYTES # (AUTO) 1.6 X 10^3 (1.0-4.0); LYMPHOCYTES % (AUTO) 30 % (12-44); MEAN CORPUSCULAR HEMOGLOBIN 28 PG (25-34); MEAN CORPUSCULAR HGB CONC 33 G/DL (32-36); MEAN CORPUSCULAR VOLUME 87 FL (80-99); MEAN PLATELET VOLUME 10.2 FL (7.4-10.4); MONOCYTES # (AUTO) 0.4 X 10^3 (0.0-1.0); MONOCYTES % (AUTO) 7 % (0-12); NEUTROPHILS # (AUTO) 3.2 X 10^3 (1.8-7.8); NEUTROPHILS % (AUTO) 59 % (42-75); PLATELET COUNT 226 10^3/uL (130-400); RED CELL DISTRIBUTION WIDTH 14.2 % (10.0-14.5); WHITE BLOOD COUNT 5.3 10^3/uL (4.3-11.0)
[2019-01-27 07:42] LABS: ALBUMIN 4.2 GM/DL (3.2-4.5); BILIRUBIN,TOTAL 0.5 MG/DL (0.1-1.0); CALCIUM 9.7 MG/DL (8.5-10.1); CREATININE SERUM 0.96 MG/DL (0.60-1.30); POTASSIUM 4.1 MMOL/L (3.6-5.0); TOTAL PROTEIN 7.1 GM/DL (6.4-8.2)
== END ==
LOC: LAB 07:07
PROVIDERS: ATTEND Registered Nurse
DX: E11.9 Type 2 diabetes mellitus without complications (principal); E78.5 Hyperlipidemia, unspecified
CPT/HCPCS: 36415; 80053; 80061; 83036; 85025

== ENCOUNTER → 2020-04-05 | Outpatient (CLI) | payer BC ==
[2020-04-05 07:02] LABS: BASOPHILS % (AUTO) 0 % (0-10); EOSINOPHILS # (AUTO) 0.2 10^3/uL (0.0-0.3); EOSINOPHILS % (AUTO) 4 % (0-10); HEMATOCRIT 39 % (35-52); HEMOGLOBIN 12.7 G/DL (11.5-16.0); LYMPHOCYTES # (AUTO) 1.8 X 10^3 (1.0-4.0); LYMPHOCYTES % (AUTO) 33 % (12-44); MEAN CORPUSCULAR HEMOGLOBIN 28 PG (25-34); MEAN CORPUSCULAR HGB CONC 33 G/DL (32-36); MEAN CORPUSCULAR VOLUME 85 FL (80-99); MEAN PLATELET VOLUME 10.3 FL (7.4-10.4); MONOCYTES # (AUTO) 0.4 X 10^3 (0.0-1.0); MONOCYTES % (AUTO) 8 % (0-12); NEUTROPHILS # (AUTO) 3.1 X 10^3 (1.8-7.8); NEUTROPHILS % (AUTO) 56 % (42-75); PLATELET COUNT 202 10^3/uL (130-400); RED CELL DISTRIBUTION WIDTH 14.5 % (10.0-14.5); WHITE BLOOD COUNT 5.5 10^3/uL (4.3-11.0)
[2020-04-05 07:13] LABS: ALBUMIN 4.2 GM/DL (3.2-4.5); POTASSIUM 4.3 MMOL/L (3.6-5.0)
[2020-04-05 07:14] LABS: CALCIUM 9.6 MG/DL (8.5-10.1)
[2020-04-05 07:16] LABS: TOTAL PROTEIN 7.4 GM/DL (6.4-8.2)
[2020-04-05 07:17] LABS: BILIRUBIN,TOTAL 0.6 MG/DL (0.1-1.0)
[2020-04-05 07:19] LABS: CREATININE SERUM 1.02 MG/DL (0.60-1.30)
[2020-04-05 07:22] LABS: MAGNESIUM 2.2 MG/DL (1.6-2.4)
[2020-04-05 08:00] LABS: ERYTHROCYTE SEDIMENTATION RATE 25 MM/HR (0-30)
== END ==
LOC: LAB 06:40
PROVIDERS: ATTEND Internal Medicine Cardiovascular Disease
DX: E11.21 Type 2 diabetes mellitus with diabetic nephropathy (principal); I10 Essential (primary) hypertension
CPT/HCPCS: 36415; 80053; 80061; 83735; 84443; 85025; 85652

== ENCOUNTER → 2020-09-26 | Outpatient (CLI) | payer BC | LOC: CARD 08:00 | PROVIDERS: ATTEND Internal Medicine Cardiovascular Disease | DX: I10 Essential (primary) hypertension (principal); R00.1 Bradycardia, unspecified | CPT/HCPCS: 93225; 93226 ==

== ENCOUNTER 2022-04-20 17:16 | Observation (INO) | payer BC ==
[~2022-04-20] VITALS: Ht 175.2 cm; Wt 100.0 kg
[~2022-04-20 17:16] MED LIST changes: +CYCL10TA25 PO; -CYCL10TA9 PO
--- NOTE | 2022-04-20 17:41 | ED General ---
General Chief Complaint: Dizziness/Syncope Stated Complaint: LOW HEART RATE, DIZZY Source of Information: Patient Exam Limitations: No Limitations History of Present Illness Date Seen by Provider: Apr 20, 2022 Time Seen by Provider: 17:36 Initial Comments Patient is a 61-year-old female with a history of hypertension, dyslipidemia, diabetes who presents ED with dizziness weakness and low heart rate. Patient was at PT OT today and was found to be dizzy and weak. She states she has been having dizziness and weakness over the past 2 months. They noted a low heart rate in the 30s. On arrival heart rate is 38. She gets relief when she sits down. When she gets up and moves around her legs become weak and she becomes dizzy. No known cardiac history or history of CHF. Denies current headache, visual change, chest pain, shortness of breath, Julien pain, vomiting, diarrhea. Patient does take metformin. She denies taking more than her normal dose. Denies fever, chills, sore throat, ear pain, lower extremity pain. She did have a rotator cuff surgery performed 2 weeks ago. Patient denies syncope Allergies and Home Medications Allergies Coded Allergies: amoxicillin trihydrate (Unverified Allergy, Unknown, 05/06/11) iodine (Unverified Allergy, Unknown, 05/06/11) Patient Home Medication List Home Medication List Reviewed: Yes Aspirin (Aspirin) 81 Mg Tab.chew, 81 MG PO DAILY, (Reported) Entered as Reported by: DILEEP PETTIT on 04/21/221099 Last Action: Reviewed Atorvastatin Calcium (Atorvastatin Calcium) 40 Mg Tablet, 40 MG PO DAILY, (Reported) Entered as Reported by: DILEEP PETTIT on 04/21/221099 Last Action: Reviewed Calcium Carbonate (Calcium) 500 Mg Calcium (1250 Mg) Tablet, 500 MG PO DAILY, (Reported) Entered as Reported by: DILEEP PETTIT on 04/21/221099 Last Action: Reviewed Dapagliflozin Propanediol (Farxiga) 10 Mg Tablet, 10 MG PO DAILY, (Reported) Entered as Reported by: DILEEP PETTIT on 04/21/221099 Last Action: Reviewed Doxazosin Mesylate (Doxazosin Mesylate) 1 Mg Tablet, 1 MG PO BID, (Reported) Entered as Reported by: DILEEP PETTIT on 04/21/221099 Last Action: Reviewed Dulaglutide (Trulicity) 1.5 Mg/0.5 Ml Pen.injctr, 1.5 MG SC WEEK, (Reported) Entered as Reported by: DILEEP PETTIT on 04/21/221099 Last Action: Reviewed Insulin Detemir (Levemir Flextouch) 100 Unit/Ml (3 Ml) Insuln.pen, 20 UNITS SC HS, (Reported) Entered as Reported by: DILEEP PETTIT on 04/21/221099 Last Action: Reviewed Levocetirizine Dihydrochloride (Levocetirizine Dihydrochloride) 5 Mg Tablet, 5 MG PO DAILY, (Reported) Entered as Reported by: DILEEP PETTIT on 04/21/221099 Last Action: Reviewed Metformin HCl (Metformin HCl) 1,000 Mg Tablet, 1,000 MG PO DAILY, (Reported) Entered as Reported by: DILEEP PETTIT on 04/21/221099 Last Action: Reviewed Multivitamin (Multi-Vitamin Daily) 1 Each Tablet, 1 EACH PO DAILY, (Reported) Entered as Reported by: DILEEP PETTIT on 04/21/221099 Last Action: Reviewed Naproxen Sodium (Aleve) 220 Mg Tablet, 220 MG PO BID, (Reported) Entered as Reported by: DILEEP PETTIT on 04/21/221099 Last Action: Reviewed Oxycodone HCl/Acetaminophen (Oxycodone-Acetaminophen 5-325) 5 Mg-325 Mg Tablet, 1 EACH PO Q4H PRN for PAIN-MODERATE (5-7), (Reported) Entered as Reported by: DILEEP PETTIT on 04/21/221099 Last Action: Reviewed Triamterene/Hydrochlorothiazid (Triamterene-Hctz 75-50 mg Tab) 75 Mg-50 Mg Tablet, 0.5 EACH PO DAILY Prescribed by: ELMER JULIAN on 04/21/22 1157 Review of Systems Review of Systems Constitutional: No chills, No diaphoresis, No malaise, No weakness EENTM: No blurred vision, No double vision Respiratory: No cough, No dyspnea on exertion Cardiovascular: No chest pain, No edema, No Hx of Intervention Gastrointestinal: No abdominal pain, No diarrhea, No nausea, No vomiting Musculoskeletal: No back pain, No joint pain Skin: No change in color, No change in hair/nails All Other Systems Reviewed Negative Unless Noted: Yes Past Sxfyesa-Odyybh-Wzjwiv Hx Immunizations Up To Date Tetanus Booster (TDap): More than 5yrs PED Vaccines UTD: No Seasonal Allergies Seasonal Allergies: No Past Medical History Surgeries: Yes (Fx left arm, Fx right ankle, arthroscopy left knee) Respiratory: Yes Sleep Apnea Currently Using CPAP: No Cardiac: Yes Hypertension Neurological: No Reproductive Disorders: No Sexually Transmitted Disease: No Genitourinary: No Gastrointestinal: Yes Gastroesophageal Reflux Musculoskeletal: Yes Fractures Endocrine: Yes Diabetes, Non-Insulin dep HEENT: No Cancer: No Psychosocial: No Integumentary: No Blood Disorders: No Family Medical History Cancer 03 FATHER (lung ca) 03 MOTHER (stomach ca) Family history: Cardiovascular disease 03 MOTHER Family history: Diabetes mellitus 09 BROTHER Stroke 03 MOTHER No Pertinent Family Hx Physical Exam Vital Signs Vital Signs - First Documented 04/20/22 17:23 Temp 36.3 Pulse 36 Resp 15 B/P (MAP) 140/53 (82) Pulse Ox 99 Capillary Refill : Height, Weight, BMI Height: 5'9.00" Weight: 242lbs. 1.0oz. [id number]; 35.4 BMI Method:Stated General Appearance: No Apparent Distress, WD/WN Eyes: Bilateral Eye Normal Inspection, Bilateral Eye PERRL, Bilateral Eye EOMI HEENT: PERRL/EOMI, TMs Normal, Normal ENT Inspection, Pharynx Normal Neck: Full Range of Motion, Normal Inspection, Non Tender, Supple Respiratory: Chest Non Tender, Lungs Clear, Normal Breath Sounds, No Accessory Muscle Use, No Respiratory Distress Cardiovascular: No Edema, No Gallop, No JVD, Bradycardia Gastrointestinal: Normal Bowel Sounds, No Organomegaly, No Pulsatile Mass Back: Normal Inspection, No CVA Tenderness Extremity: Normal Capillary Refill, Normal Inspection, Normal Range of Motion Neurologic/Psychiatric: Alert, Oriented x3, No Motor/Sensory Deficits, Normal Mood/Affect, um specialist II-XII Norm as Tested Progress/Results/Core Measures Suspected Sepsis SIRS Temperature: Pulse: Respiratory Rate: Laboratory Tests 04/20/22 17:32: White Blood Count 8.2 Blood Pressure / Mean: Laboratory Tests 04/20/22 17:32: Creatinine 2.10H, INR Comment 1.0, Platelet Count 236, Total Bilirubin 0.4 Results/Orders Lab Results Laboratory Tests Test 04/20/22 17:32 04/20/22 18:15 Range/Units White Blood Count 8.2 4.3-11.0 10^3/uL Red Blood Count 3.68 L 3.80-5.11 10^6/uL Hemoglobin 10.5 L 11.5-16.0 g/dL Hematocrit 32 L 35-52 % Mean Corpuscular Volume 87 80-99 fL Mean Corpuscular Hemoglobin 29 25-34 pg Mean Corpuscular Hemoglobin Concent 33 32-36 g/dL Red Cell Distribution Width 14.0 10.0-14.5 % Platelet Count 236 130-400 10^3/uL Mean Platelet Volume 11.0 9.0-12.2 fL Immature Granulocyte % (Auto) 0 % Neutrophils (%) (Auto) 55 42-75 % Lymphocytes (%) (Auto) 35 12-44 % Monocytes (%) (Auto) 7 0-12 % Eosinophils (%) (Auto) 3 0-10 % Basophils (%) (Auto) 1 0-10 % Neutrophils # (Auto) 4.5 1.8-7.8 10^3/uL Lymphocytes # (Auto) 2.9 1.0-4.0 10^3/uL Monocytes # (Auto) 0.6 0.0-1.0 10^3/uL Eosinophils # (Auto) 0.2 0.0-0.3 10^3/uL Basophils # (Auto) 0.0 0.0-0.1 10^3/uL Immature Granulocyte # (Auto) 0.0 0.0-0.1 10^3/uL Prothrombin Time 13.5 12.2-14.7 SEC INR Comment 1.0 0.8-1.4 Activated Partial Thromboplast Time 26 24-35 SEC Sodium Level 136 135-145 MMOL/L Potassium Level 4.5 3.6-5.0 MMOL/L Chloride Level 106 98-107 MMOL/L Carbon Dioxide Level 14 L 21-32 MMOL/L Anion Gap 16 H 5-14 MMOL/L Blood Urea Nitrogen 61 H 7-18 MG/DL Creatinine 2.10 H 0.60-1.30 MG/DL Estimat Glomerular Filtration Rate 26 BUN/Creatinine Ratio 29 Glucose Level 138 H 70-105 MG/DL Calcium Level 9.2 8.5-10.1 MG/DL Corrected Calcium 9.3 8.5-10.1 MG/DL Magnesium Level 2.3 1.6-2.4 MG/DL Total Bilirubin 0.4 0.1-1.0 MG/DL Aspartate Amino Transf (AST/SGOT) 19 5-34 U/L Alanine Aminotransferase (ALT/SGPT) 20 0-55 U/L Alkaline Phosphatase 74 40-136 U/L Myoglobin 67.5 10.0-92.0 NG/ML Troponin I < 0.028 <0.028 NG/ML B-Type Natriuretic Peptide 300.4 H <100.0 PG/ML Total Protein 6.8 6.4-8.2 GM/DL Albumin 3.9 3.2-4.5 GM/DL Urine Color YELLOW Urine Clarity CLEAR Urine pH 6.0 5-9 Urine Specific [place] 1.015 L 1.016-1.022 Urine Protein NEGATIVE NEGATIVE Urine Glucose (UA) 3+ H NEGATIVE Urine Ketones NEGATIVE NEGATIVE Urine Nitrite NEGATIVE NEGATIVE Urine Bilirubin NEGATIVE NEGATIVE Urine Urobilinogen 0.2 < = 1.0 MG/DL Urine Leukocyte Esterase 2+ H NEGATIVE Urine RBC (Auto) NEGATIVE NEGATIVE Urine RBC 0-2 /HPF Urine WBC 25-50 H /HPF Urine Squamous Epithelial Cells NONE /HPF Urine Renal Epithelial Cells 0-2 /HPF Urine Crystals NONE /LPF Urine Bacteria TRACE /HPF Urine Casts NONE /LPF Urine Mucus NEGATIVE /LPF Urine Culture Indicated YES My Orders Orders - AQUILES DIAZ PA Cbc With Automated Diff (04/20/22 17:35) Magnesium (04/20/22 17:35) Chest 1 View, Ap/Pa Only (04/20/22 17:35) Comprehensive Metabolic Panel (04/20/22 17:35) Myoglobin Serum (04/20/22 17:35) Protime With Inr (04/20/22 17:35) Partial Thromboplastin Time (04/20/22 17:35) O2 (04/20/22 17:35) Monitor-Rhythm Ecg Trace Only (04/20/22 17:35) Ed Iv/Invasive Line Start (04/20/22 17:35) Bnp [place] (04/20/22 17:35) Troponin I [place] (04/20/22 17:35) Aspirin Chewable Tablet (Baby Aspirin Ch (04/20/22 17:45) Ua Culture If Indicated (04/20/22 18:17) Ns Iv 1000 Ml (Sodium Chloride 0.9%) (04/20/22 18:25) Vital Signs/I&O 04/20/22 17:23 Temp 36.3 Pulse 36 Resp 15 B/P (MAP) 140/53 (82) Pulse Ox 99 Capillary Refill : ECG Comment Sinus bradycardia, right bundle branch block, left anterior fascicular block, 37 bpm, QRS duration 156 MS, QTc 420 MS. Departure Communication (PCP) Patient with initial asymptomatic bradycardia at 37. She feels better when she sits down. She states she gets dizzy lightheaded when she walks. Has had dizziness and lightheadedness for the past couple months. Worse today and was found to be bradycardic. Patient ischial heart rate 37 bpm. She has no chest pain or shortness of breath or increased leg swelling. She is on triamentrene- hctz and metoprolol. She denies of any drug use or excessive metoprolol use. She is not on digoxin. Patient troponin was negative. Slight increase in BNP at 300. Chest x-ray was negative for CHF type of pattern. No pneumonia. Normal white blood count. change in kidney function at 2.10 BUN of 61. Normal electrolytes. Patient states she feels dehydrated and asking or water however due to her elevated BNP, small amount of IV fluids will be given at 125 ml/hr. she was not orthostatic hypotensive. Patient was discussed with Dr. Read cardiology recommends stopping metoprolol and will continue consulting. Once again patient is currently asymptomatic at this time while laying down. Due to the bradycardia which improved to the mid 50s during her stay and the change in kidney function patient will be admitted for further evaluation and cardiac consult. Urinalysis concerning for UTI. Patient Was given dose of Rocephin Impression Primary Impression: Dizziness Additional Impression: Bradycardia Disposition: ADMITTED INPATIENT Condition: Stable Admissions Decision to Admit Reason: Admit from ER (General) Decision to Admit/Date: Apr 20, 2022 Time/Decision to Admit Time: 18:31 Departure-Patient Inst. Scripts Triamterene/Hydrochlorothiazid (Triamterene-Hctz 75-50 mg Tab) 75 Mg-50 Mg Tablet 0.5 EACH PO DAILY for 14 Days, TAB Prov: ELMER JULIAN MD 04/21/22 AQUILES DIAZ Apr 20, 2022 17:41
[2022-04-20 17:42] LABS: BASOPHILS % (AUTO) 1 % (0-10); EOSINOPHILS # (AUTO) 0.2 10^3/uL (0.0-0.3); EOSINOPHILS % (AUTO) 3 % (0-10); HEMATOCRIT 32 % (35-52); HEMOGLOBIN 10.5 g/dL (11.5-16.0); LYMPHOCYTES # (AUTO) 2.9 10^3/uL (1.0-4.0); LYMPHOCYTES % (AUTO) 35 % (12-44); MEAN CORPUSCULAR HEMOGLOBIN 29 pg (25-34); MEAN CORPUSCULAR HGB CONC 33 g/dL (32-36); MEAN CORPUSCULAR VOLUME 87 fL (80-99); MONOCYTES # (AUTO) 0.6 10^3/uL (0.0-1.0); MONOCYTES % (AUTO) 7 % (0-12); NEUTROPHILS # (AUTO) 4.5 10^3/uL (1.8-7.8); NEUTROPHILS % (AUTO) 55 % (42-75); PLATELET COUNT 236 10^3/uL (130-400); WHITE BLOOD COUNT 8.2 10^3/uL (4.3-11.0)
[2022-04-20] MEDS ORDERED: ASPIRIN 81 MG CHEW (CHILDREN'S ASA) PO ONE (17:45)
[2022-04-20 17:57] LABS: PROTHROMBIN TIME PATIENT 13.5 SEC (12.2-14.7)
[2022-04-20 18:01] LABS: ALBUMIN 3.9 GM/DL (3.2-4.5); POTASSIUM 4.5 MMOL/L (3.6-5.0)
[2022-04-20 18:02] LABS: CALCIUM 9.2 MG/DL (8.5-10.1)
[2022-04-20 18:03] LABS: TOTAL PROTEIN 6.8 GM/DL (6.4-8.2)
[2022-04-20 18:05] LABS: BILIRUBIN,TOTAL 0.4 MG/DL (0.1-1.0)
[2022-04-20 18:07] LABS: CREATININE SERUM 2.1 MG/DL (0.60-1.30)
[2022-04-20 18:10] LABS: MAGNESIUM 2.3 MG/DL (1.6-2.4)
[2022-04-20 18:24] LABS: BILIRUBIN,URINE NEGATIVE (NEGATIVE); CLARITY,URINE CLEAR; COLOR,URINE YELLOW; GLUCOSE, URINE (UA) 3+ (NEGATIVE); KETONES,URINE NEGATIVE (NEGATIVE); LEUKOCYTE ESTERASE ,URINE 2+ (NEGATIVE); NITRITE,URINE NEGATIVE (NEGATIVE); PROTEIN,URINE NEGATIVE (NEGATIVE)
--- NOTE | 2022-04-20 18:24 | Diagnostic Imaging Report ---
INDICATION: Chest pain. EXAMINATION: Portable chest at 06:22 p.m. FINDINGS: Heart size and pulmonary vascularity are normal. Lungs are clear. There are no effusions or pneumothoraces. IMPRESSION: No acute abnormalities in the chest. There may be mild emphysema. Dictated by: Dictated on workstation # [id number]
[2022-04-20] MEDS ORDERED: NS IV 1000 ML 1,000 ML IV STA (18:25)
[2022-04-20 18:32] LABS: BACTERIA,URINE TRACE /HPF; RBC,URINE 0-2 /HPF; RENAL EPITHELIAL CELLS,URINE 0-2 /HPF; WBC,URINE 25-50 /HPF
[2022-04-20] MEDS ORDERED: cefTRIAXone 1 GM PRE-MIX 50 ML IV STA (18:35)
[2022-04-20 18:56] VITALS: BP_SYST 129; BP_SYST 131; BP_SYST 132; BP_DIAS 42; BP_DIAS 47; BP_DIAS 51
[2022-04-20 19:41] VITALS: BP 153/66
[2022-04-20] MEDS: CATHETER FLUSH 10 ML SYR IVP SCH (22:00)
[2022-04-21 00:18] VITALS: BP 105/49
[2022-04-21 04:17] VITALS: BP 133/62
[2022-04-21] MEDS: CATHETER FLUSH 10 ML SYR IVP SCH (06:15)
[2022-04-21 06:17] LABS: POTASSIUM 4.3 MMOL/L (3.6-5.0)
[2022-04-21 06:18] LABS: CALCIUM 9.2 MG/DL (8.5-10.1)
[2022-04-21 06:19] LABS: BASOPHILS % (AUTO) 1 % (0-10); EOSINOPHILS # (AUTO) 0.2 10^3/uL (0.0-0.3); EOSINOPHILS % (AUTO) 4 % (0-10); HEMATOCRIT 33 % (35-52); HEMOGLOBIN 10.3 g/dL (11.5-16.0); LYMPHOCYTES # (AUTO) 2.2 10^3/uL (1.0-4.0); LYMPHOCYTES % (AUTO) 37 % (12-44); MEAN CORPUSCULAR HEMOGLOBIN 29 pg (25-34); MEAN CORPUSCULAR HGB CONC 31 g/dL (32-36); MEAN CORPUSCULAR VOLUME 91 fL (80-99); MEAN PLATELET VOLUME 10.8 fL (9.0-12.2); MONOCYTES # (AUTO) 0.4 10^3/uL (0.0-1.0); MONOCYTES % (AUTO) 7 % (0-12); NEUTROPHILS % (AUTO) 51 % (42-75); PLATELET COUNT 206 10^3/uL (130-400); WHITE BLOOD COUNT 5.9 10^3/uL (4.3-11.0)
[2022-04-21 06:23] LABS: CREATININE SERUM 1.68 MG/DL (0.60-1.30)
[2022-04-21 07:50] VITALS: BP 144/60
--- NOTE | 2022-04-21 08:40 | Consultation-Cardiology ---
HPI-Cardiology Cardiology Consultation: Date of Consultation 04/21/22 Time Seen by a Provider: 08:50 Date of Admission 04-20-22 Attending Physician [facility] Admitting Physician Admitting Physician: Roxanna Cutler DO Attending Physician: Antonia López MD Consulting Physician Antolin Amaral MD HPI: Chief Complaint: Dizziness, weakness Ms. Vega is a 61 yr old female who has been admitted to [facility] from the ED. She reports over the course of the last several days she has had episodes of dizziness and weakness when getting up to ambulate. She denies any syncope or n ear syncope. She reports she was at PT yesterday and they noted her HR to be low and advised the ED. Upon arrival in the ED it was noted her HR was in the 30's. Review of her medication list shows she is taking Metoprolol succinate at home. She denies any c/o CP, SOB, palpitations. No c/o LE swelling. Review of Systems-Cardiology Review of Systems Constitutional: No chills, No fever; lightheadedness, malaise Eyes: No vision change Ears/Nose/Throat: No epistaxis, No recent hearing loss Respiratory: As described under HPI Cardiovascular: As described under HPI Gastrointestinal: No constipation, No diarrhea, No nausea, No vomiting Genitourinary: No dysuria, No hematuria Musculoskeletal: other (recent right shoulder surgery) Skin: No rash on exposed areas, No ulcerations on exposed areas Psychiatric/Neurological: No anxiety, No depression, No seizure, No focal weakness, No syncope Hematologic: No bleeding abnormalities All Other Systems Reviewed Negative Unless Noted: Yes IHR-Nehbxz-Kijguc Hx Patient Social History Smoking Status: Former Smoker Former smoker/When Quit: Nov 15, 2011 Alcohol Use?: No Pt feels they are or have been: No Immunizations Up To Date Tetanus Booster (TDap): More than 5yrs Date of Pneumonia Vaccine: Feb 26, 2014 Date of Influenza Vaccine: Aug 15, 2016 Past Medical History PMH As described under Assessment. Family Medical History Family Medical History: She reports her mother had her first [place] when she was in her late 50's. Ace reports her mother had a CVA. Family History: Cancer 03 FATHER (lung ca) 03 MOTHER (stomach ca) Family history: Cardiovascular disease 03 MOTHER Family history: Diabetes mellitus 09 BROTHER Stroke 03 MOTHER Allergies and Home Medications Allergies Coded Allergies: amoxicillin trihydrate (Unverified Allergy, Unknown, 05/06/11) iodine (Unverified Allergy, Unknown, 05/06/11) Patient Home Medication List Amlodipine Besylate (Amlodipine Besylate) 5 Mg Tablet, 5 MG PO BID, (Reported) Entered as Reported by: SATNAM RAGLAND on 04/30/11 153 Glipizide (Glipizide) 10 Mg Tablet, 10 MG PO DAILY, (Reported) Entered as Reported by: SATNAM RAGLAND on 04/30/11 153 Losartan Potassium (Losartan Potassium) 50 Mg Tablet, 50 MG PO BID, (Reported) Entered as Reported by: DIEUDONNE CHENEY on 02/09/17 09 Metformin Hcl (Metformin 1000 Mg) 1,000 Mg Tablet, 1,000 MG PO BID WITH MEALS, (Reported) Entered as Reported by: SATNAM ARGLAND on 04/30/111532 Multivitamin (Daily Multiple Vitamin) 1 Each Tablet, 1 TAB PO DAILY, (Reported) Entered as Reported by: DIEUDONNE CHENEY on 02/09/17 0912 Triamterene/Hydrochlorothiazid (Triamterene-Hctz 75-50 mg Tab) 1 Each Tablet, 0.5 EA PO DAILY Prescribed by: UMU SANTANA on 02/10/17 0844 Physical Exam-Cardiology Physical Exam Vital Signs/I&O 04/21/22 04/21/22 04/21/22 04/21/22 00:18 01:00 04:17 07:00 Temp 36.7 36.3 Pulse 51 50 50 52 Resp 18 16 B/P (MAP) 105/49 (67) 133/62 (85) Pulse Ox 96 99 O2 Delivery Room Air 04/21/22 04/21/22 07:50 08:00 Temp 36.0 Pulse 60 Resp 18 B/P (MAP) 144/60 (88) Pulse Ox 95 95 O2 Delivery Room Air Room Air 04/21/22 00:00 Intake Total 200 ml Balance 200 ml Capillary Refill : Constitutional: AAO x 3, well-developed, well-nourished HEENT: PERRL, hearing is well preserved, oral hygience is good Neck: No carotid bruit; carotid pulses are 2 + bilaterally Respiratory: No accessory muscle use, No respiratory distress; chest expansion is symmetric, chest is bilaterally symmetric, lungs clear to auscultation Cardiovascular: regular rate-rhythm; No JVD; S1 and S2 Gastrointestinal: No tender; soft, round, audible bowel sounds Extremities: no lower extremity edema bilateral Neurologic/Psychiatric: grossly intact (moves all extremities) Skin: No rash on exposed areas, No ulcerations on exposed areas; other (right anterior shoulder with incision - steri-strips in place, no redness, bruising, drainage or swelling) Data Review Labs Laboratory Tests 04/20/22 17:32: White Blood Count 8.2, Red Blood Count 3.68L, Hemoglobin 10.5L, Hematocrit 32L, Mean Corpuscular Volume 87, Mean Corpuscular Hemoglobin 29, Mean Corpuscular Hemoglobin Concent 33, Red Cell Distribution Width 14.0, Platelet Count 236, Mean Platelet Volume 11.0, Immature Granulocyte % (Auto) 0, Neutrophils (%) (Auto) 55, Lymphocytes (%) (Auto) 35, Monocytes (%) (Auto) 7, Eosinophils (%) (Auto) 3, Basophils (%) (Auto) 1, Neutrophils # (Auto) 4.5, Lymphocytes # (Auto) 2.9, Monocytes # (Auto) 0.6, Eosinophils # (Auto) 0.2, Basophils # (Auto) 0.0, Immature Granulocyte # (Auto) 0.0, Prothrombin Time 13.5, INR Comment 1.0, Activated Partial Thromboplast Time 26, Sodium Level 136, Potassium Level 4.5, Chloride Level 106, Carbon Dioxide Level 14L, Anion Gap 16H, Blood Urea Nitrogen 61H, Creatinine 2.10H, Estimat Glomerular Filtration Rate 26, BUN/Creatinine Ratio 29, Glucose Level 138H, Calcium Level 9.2, Corrected Calcium 9.3, Magnesium Level 2.3, Total Bilirubin 0.4, Aspartate Amino Transf (AST/SGOT) 19, Alanine Aminotransferase (ALT/SGPT) 20, Alkaline Phosphatase 74, Myoglobin 67.5, Troponin I < 0.028, B-Type Natriuretic Peptide 300.4H, Total Protein 6.8, Albumin 3.9 04/20/22 18:15: Urine Color YELLOW, Urine Clarity CLEAR, Urine pH 6.0, Urine Specific [place] 1.015L, Urine Protein NEGATIVE, Urine Glucose (UA) 3+H, Urine Ketones NEGATIVE, Urine Nitrite NEGATIVE, Urine Bilirubin NEGATIVE, Urine Urobilinogen 0.2, Urine Leukocyte Esterase 2+H, Urine RBC (Auto) NEGATIVE, Urine RBC 0-2, Urine WBC 25- 50H, Urine Squamous Epithelial Cells NONE, Urine Renal Epithelial Cells 0-2, Urine Crystals NONE, Urine Bacteria TRACE, Urine Casts NONE, Urine Mucus NEGATIVE, Urine Culture Indicated YES 04/21/22 05:25: White Blood Count 5.9, Red Blood Count 3.61L, Hemoglobin 10.3L, Hematocrit 33L, Mean Corpuscular Volume 91, Mean Corpuscular Hemoglobin 29, Mean Corpuscular Hemoglobin Concent 31L, Red Cell Distribution Width 14.2, Platelet Count 206, Mean Platelet Volume 10.8, Immature Granulocyte % (Auto) 0, Neutrophils (%) (Auto) 51, Lymphocytes (%) (Auto) 37, Monocytes (%) (Auto) 7, Eosinophils (%) (Auto) 4, Basophils (%) (Auto) 1, Neutrophils # (Auto) 3.0, Lymphocytes # (Auto) 2.2, Monocytes # (Auto) 0.4, Eosinophils # (Auto) 0.2, Basophils # (Auto) 0.0, Immature Granulocyte # (Auto) 0.0, Sodium Level 138, Potassium Level 4.3, Chloride Level 108H, Carbon Dioxide Level 16L, Anion Gap 14, Blood Urea Nitrogen 54H, Creatinine 1.68H, Estimat Glomerular Filtration Rate 34, BUN/Creatinine Ratio 32, Glucose Level 136H, Calcium Level 9.2, Triglycerides Level 226H, Cholesterol Level 125, LDL Cholesterol Direct 53, VLDL Cholesterol 45H, HDL Cholesterol 22L Radiology NAME: KASSIE VEGA [facility] REC#: [id number] PT STATUS: REG ER : 1960 PHYSICIAN: AQUILES DIAZ ADMIT DATE: 04/20/22/ER Signed Date of Exam:04/20/22 CHEST 1 VIEW, AP/PA ONLY INDICATION: Chest pain. EXAMINATION: Portable chest at 06:22 p.m. FINDINGS: Heart size and pulmonary vascularity are normal. Lungs are clear. There are no effusions or pneumothoraces. IMPRESSION: No acute abnormalities in the chest. There may be mild emphysema. Dictated by: Dictated on workstation # [id number] Dict: 04/20/22 1821 Trans: 04/20/22 1832 [id number] Interpreted by: ELI CORBIN MD Electronically signed by: ELI CORBIN MD 04/20/221831 ECG Impression ECG Comment Sinus bradycardia 37 with RBB and LAFB A/P-Cardiology Assessment/Admission Diagnosis Sinus bradycardia - ECG of 04-20-22 showed SB 37 with RBBB and LAFB - likely secondary to BB tx UTI - management per medical services Card cath of 02/08/17 showed angiographically normal cors, LVEF 60-65%, elevated LVEDP Hypertension - Previous intolerance to bb d/t bradycardia - Intolerance amlodipine No renal artery stenoses on angio of 02/08/17 LVH with RBBB per EKG Echo of 02/09/17: Mild conc LVH, LVEF 60%, Triv MR & TR, PASP WNL LUKE - remains noncompliant with therapy DM II Diabetic nephropathy and contrast nephropathy (post cath of 02/08/17). Cr 1.37 and eGFR 40 on 02/17/17. Improved to CR 0.97 on lab of March 24, 2017 Family h/o early CAD in her mother ([place] in her late 50's) Obesity with BMI of 35 No significant carotid arterial disease reported on carotid u/s of 2014 at [place], [place] Discussion and Recomendations Sinus bradycardia likely secondary to BB tx - Toprol XL has been stopped and HR is SR in the mid 50's to lower 60's - no further c/o dizziness or lightheadedness UTI - management per medical services Monitor lab - replace electrolytes as indicated Further recs will be based on her hospital course We would like to thank medical services for this consult UMU SANTANA Apr 21, 2022 08:39
--- NOTE | 2022-04-21 10:21 | Consultation-Cardiology ---
HPI-Cardiology Cardiology Consultation: Date of Consultation 04/21/22 Time Seen by a Provider: 09:50 Date of Admission Attending Physician [facility] Admitting Physician Admitting Physician: Roxanna Cutler DO Attending Physician: Antonia López MD Consulting Physician BENITA MCLAUGHLIN MD, MA, FACP, FACC, FSCAI, CCDS HPI: Chief Complaint: Dizziness, weakness Ms. Trevino is a 61 yr old female who has been admitted to [facility] from the ED. She reports over the course of the last several days she has had episodes of dizziness and weakness when getting up to ambulate. She denies any syncope or near syncope. She reports she was at PT yesterday and they noted her HR to be low and advised the ED. Upon arrival in the ED it was noted her HR was in the 30's. Review of her medication list shows she is taking Metoprolol succinate at home. She denies any c/o CP, SOB, palpitations. No c/o LE swelling. Review of Systems-Cardiology Review of Systems Constitutional: No chills, No fever; lightheadedness, malaise Eyes: No vision change Ears/Nose/Throat: No epistaxis, No recent hearing loss Respiratory: As described under HPI Cardiovascular: As described under HPI Gastrointestinal: No constipation, No diarrhea, No nausea, No vomiting Genitourinary: No dysuria, No hematuria Musculoskeletal: other (recent right shoulder surgery) Skin: No rash on exposed areas, No ulcerations on exposed areas Psychiatric/Neurological: No anxiety, No depression, No seizure, No focal weakness, No syncope Hematologic: No bleeding abnormalities All Other Systems Reviewed Negative Unless Noted: Yes [id number]-[id number] Hx Patient Social History Smoking Status: Former Smoker Former smoker/When Quit: Nov 15, 2011 Alcohol Use?: No Pt feels they are or have been: No Immunizations Up To Date Tetanus Booster (TDap): More than 5yrs Date of Pneumonia Vaccine: Feb 26, 2014 Date of Influenza Vaccine: Aug 15, 2016 Past Medical History PMH As described under Assessment. Family Medical History Family Medical History: She reports her mother had her first [place] when she was in her late 50's. Ace reports her mother had a CVA. Family History: Cancer 03 FATHER (lung ca) 03 MOTHER (stomach ca) Family history: Cardiovascular disease 03 MOTHER Family history: Diabetes mellitus 09 BROTHER Stroke 03 MOTHER Allergies and Home Medications Allergies Coded Allergies: amoxicillin trihydrate (Unverified Allergy, Unknown, 05/06/11) iodine (Unverified Allergy, Unknown, 05/06/11) Patient Home Medication List Home Medication List Reviewed: Yes Amlodipine Besylate (Amlodipine Besylate) 5 Mg Tablet, 5 MG PO BID, (Reported) Entered as Reported by: SATNAM RAGLAND on 04/30/111532 Glipizide (Glipizide) 10 Mg Tablet, 10 MG PO DAILY, (Reported) Entered as Reported by: SATNAM RAGLAND on 04/30/111532 Losartan Potassium (Losartan Potassium) 50 Mg Tablet, 50 MG PO BID, (Reported) Entered as Reported by: DIEUDONNE CHENEY on 02/09/17 09 Metformin Hcl (Metformin 1000 Mg) 1,000 Mg Tablet, 1,000 MG PO BID WITH MEALS, (Reported) Entered as Reported by: SATNAM RAGLAND on 04/30/111532 Multivitamin (Daily Multiple Vitamin) 1 Each Tablet, 1 TAB PO DAILY, (Reported) Entered as Reported by: DIEUDONNE CHENEY on 02/09/1712 Triamterene/Hydrochlorothiazid (Triamterene-Hctz 75-50 mg Tab) 1 Each Tablet, 0.5 EA PO DAILY Prescribed by: UMU SANTANA on 02/10/17 0844 Physical Exam-Cardiology Physical Exam Vital Signs/I&O 04/21/22 04/21/22 04/21/22 04/21/22 00:18 01:00 04:17 07:00 Temp 36.7 36.3 Pulse 51 50 50 52 Resp 18 16 B/P (MAP) 105/49 (67) 133/62 (85) Pulse Ox 96 99 O2 Delivery Room Air 04/21/22 04/21/22 07:50 08:00 Temp 36.0 Pulse 60 Resp 18 B/P (MAP) 144/60 (88) Pulse Ox 95 95 O2 Delivery Room Air Room Air 04/21/22 00:00 Intake Total 200 ml Balance 200 ml Capillary Refill : Constitutional: AAO x 3, well-developed, well-nourished HEENT: PERRL, hearing is well preserved, oral hygience is good Neck: No carotid bruit; carotid pulses are 2 + bilaterally Respiratory: No accessory muscle use, No respiratory distress; chest expansion is symmetric, chest is bilaterally symmetric, lungs clear to auscultation Cardiovascular: regular rate-rhythm; No JVD; S1 and S2 Gastrointestinal: No tender; soft, round, audible bowel sounds Extremities: no lower extremity edema bilateral Neurologic/Psychiatric: grossly intact (moves all extremities) Skin: No rash on exposed areas, No ulcerations on exposed areas; other (right anterior shoulder with incision - steri-strips in place, no redness, bruising, drainage or swelling) Data Review Labs Laboratory Tests 04/20/22 17:32: White Blood Count 8.2, Red Blood Count 3.68L, Hemoglobin 10.5L, Hematocrit 32L, Mean Corpuscular Volume 87, Mean Corpuscular Hemoglobin 29, Mean Corpuscular Hemoglobin Concent 33, Red Cell Distribution Width 14.0, Platelet Count 236, Mean Platelet Volume 11.0, Immature Granulocyte % (Auto) 0, Neutrophils (%) (Auto) 55, Lymphocytes (%) (Auto) 35, Monocytes (%) (Auto) 7, Eosinophils (%) (Auto) 3, Basophils (%) (Auto) 1, Neutrophils # (Auto) 4.5, Lymphocytes # (Auto) 2.9, Monocytes # (Auto) 0.6, Eosinophils # (Auto) 0.2, Basophils # (Auto) 0.0, Immature Granulocyte # (Auto) 0.0, Prothrombin Time 13.5, INR Comment 1.0, Activated Partial Thromboplast Time 26, Sodium Level 136, Potassium Level 4.5, Chloride Level 106, Carbon Dioxide Level 14L, Anion Gap 16H, Blood Urea Nitrogen 61H, Creatinine 2.10H, Estimat Glomerular Filtration Rate 26, BUN/Creatinine Ratio 29, Glucose Level 138H, Calcium Level 9.2, Corrected Calcium 9.3, Magnesium Level 2.3, Total Bilirubin 0.4, Aspartate Amino Transf (AST/SGOT) 19, Alanine Aminotransferase (ALT/SGPT) 20, Alkaline Phosphatase 74, Myoglobin 67.5, Troponin I < 0.028, B-Type Natriuretic Peptide 300.4H, Total Protein 6.8, Albumin 3.9 04/20/22 18:15: Urine Color YELLOW, Urine Clarity CLEAR, Urine pH 6.0, Urine Specific [place] 1.015L, Urine Protein NEGATIVE, Urine Glucose (UA) 3+H, Urine Ketones NEGATIVE, Urine Nitrite NEGATIVE, Urine Bilirubin NEGATIVE, Urine Urobilinogen 0.2, Urine Leukocyte Esterase 2+H, Urine RBC (Auto) NEGATIVE, Urine RBC 0-2, Urine WBC 25- 50H, Urine Squamous Epithelial Cells NONE, Urine Renal Epithelial Cells 0-2, Urine Crystals NONE, Urine Bacteria TRACE, Urine Casts NONE, Urine Mucus NEGATIVE, Urine Culture Indicated YES 04/21/22 05:25: White Blood Count 5.9, Red Blood Count 3.61L, Hemoglobin 10.3L, Hematocrit 33L, Mean Corpuscular Volume 91, Mean Corpuscular Hemoglobin 29, Mean Corpuscular Hemoglobin Concent 31L, Red Cell Distribution Width 14.2, Platelet Count 206, Mean Platelet Volume 10.8, Immature Granulocyte % (Auto) 0, Neutrophils (%) (Auto) 51, Lymphocytes (%) (Auto) 37, Monocytes (%) (Auto) 7, Eosinophils (%) (Auto) 4, Basophils (%) (Auto) 1, Neutrophils # (Auto) 3.0, Lymphocytes # (Auto) 2.2, Monocytes # (Auto) 0.4, Eosinophils # (Auto) 0.2, Basophils # (Auto) 0.0, I mmature Granulocyte # (Auto) 0.0, Sodium Level 138, Potassium Level 4.3, Chloride Level 108H, Carbon Dioxide Level 16L, Anion Gap 14, Blood Urea Nitrogen 54H, Creatinine 1.68H, Estimat Glomerular Filtration Rate 34, BUN/Creatinine Ratio 32, Glucose Level 136H, Calcium Level 9.2, Triglycerides Level 226H, Cholesterol Level 125, LDL Cholesterol Direct 53, VLDL Cholesterol 45H, HDL Cholesterol 22L A/P-Cardiology Assessment/Admission Diagnosis Sinus bradycardia - ECG of 04-20-22 showed SB 37 with RBBB and LAFB - bradycardi likely secondary to BB tx UTI - management per medical services Card cath of 02/08/17 showed angiographically normal cors, LVEF 60-65%, elevated LVEDP Hypertension - Previous intolerance to bb d/t bradycardia - Intolerance amlodipine No renal artery stenoses on angio of 02/08/17 LVH with RBBB per EKG Echo of 02/09/17: Mild conc LVH, LVEF 60%, Triv MR & TR, PASP WNL LUKE - remains noncompliant with therapy DM II Diabetic nephropathy and contrast nephropathy (post cath of 02/08/17). Cr 1.37 and eGFR 40 on 02/17/17. Improved to CR 0.97 on lab of March 24, 2017 Family h/o early CAD in her mother ([place] in her late 50's) Obesity with BMI of 35 No significant carotid arterial disease reported on carotid u/s of 2014 at [place], [place] Discussion and Recomendations Sinus bradycardia likely secondary to BB tx - Toprol XL has been stopped and HR is SR in the mid 50's to lower 60's - no further c/o dizziness or lightheadedness UTI - management per medical services Monitor lab - replace electrolytes as indicated Ok to d/c from cardiac standpoint. D/c beta-blockers. F/u at our office in a week We would like to thank medical services for this consult BENITA MCLAUGHLIN MD FACP [facility] CCDS Apr 21, 2022 10:21
[2022-04-21] MEDS ORDERED: ASPI-999 PO (11:00)
[2022-04-21] MEDS ORDERED: OXYC1TAB11 PO (11:00)
[2022-04-21] MEDS ORDERED: DAPA10TA PO (11:00)
[2022-04-21] MEDS ORDERED: ATOR40TA70 PO (11:00)
[2022-04-21] MEDS ORDERED: NAPR220T66 PO (11:00)
[2022-04-21] MEDS ORDERED: CALC-823 PO (11:00)
[2022-04-21] MEDS ORDERED: TRIA1TAB5 PO ×2 (11:00→11:57)
[2022-04-21] MEDS ORDERED: METF-399 PO (11:00)
[2022-04-21] MEDS ORDERED: INSU100I29 SC (11:00)
[2022-04-21] MEDS ORDERED: DOXA1TAB2 PO (11:00)
[2022-04-21] MEDS ORDERED: DULA1.5P2 SC (11:00)
[2022-04-21] MEDS ORDERED: LEVO5TAB12 PO (11:00)
[2022-04-21] MEDS ORDERED: MULT-974 PO (11:00)
[2022-04-21 11:34] VITALS: BP 141/63
--- NOTE | 2022-04-21 11:55 | Short Stay Summary ---
HPI History of Present Illness: 61 yo F that presented with dizziness and near syncope and was found to be profoundly bradycardic. Patient has been taking Metoprolol Succ and she has not felt like this before. She has been drinking and eating normally. She did recently have a Right shoulder surgery. Denies any recent medication changes. Denies any chest pain or shortness of breath. Denies any falls. Source: patient Exam Limitations: no limitations Date seen by provider: Apr 21, 2022 Time Seen by Provider: 11:15 Attending Physician [facility] PCP Admitting Physician: Roxanna Cutler DO Attending Physician: Elmer Julian MD Consult Date of Admission Apr 20, 2022 at 18:28 Home Medications Home Medications Reviewed patient Home Medication Reconciliation performed by pharmacy medication reconciliations fire range technician and/or nursing. Patients Allergies have been reviewed. 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 Past Medical History HTN Family Medical History Significant Family History: No Pertinent Family Hx Family History: Cancer 03 FATHER (lung ca) 03 MOTHER (stomach ca) Family history: Cardiovascular disease 03 MOTHER Family history: Diabetes mellitus 09 BROTHER Stroke 03 MOTHER Review of Systems ([facility]) Constitutional: dizziness, malaise EENTM: no symptoms reported Respiratory: no symptoms reported Cardiovascular: no symptoms reported Gastrointestinal: no symptoms reported Genitourinary: no symptoms reported Musculoskeletal: other (Right shoulder pain, recent surgery) Skin: no symptoms reported Psychiatric/Neurological: No Symptoms Reported Reviewed Test Results Reviewed Test Results Radiology NAME: KASSIE VEGA [facility] REC#: [id number] PT STATUS: REG ER : 1960 PHYSICIAN: AQUILES DIAZ ADMIT DATE: 04/20/22/ER Signed Date of Exam:04/20/22 CHEST 1 VIEW, AP/PA ONLY INDICATION: Chest pain. EXAMINATION: Portable chest at 06:22 p.m. FINDINGS: Heart size and pulmonary vascularity are normal. Lungs are clear. There are no effusions or pneumothoraces. IMPRESSION: No acute abnormalities in the chest. There may be mild emphysema. Dictated by: Dictated on workstation # [id number] Dict: 04/20/22 1821 Trans: 04/20/22 183 [id number] [id number] Interpreted by: ELI CORBIN MD Electronically signed by: ELI CORBIN MD 04/20/221831 Physical Exam-([facility]) Physical Exam Vital Signs VS - Last 72 Hours, by Label 04/20/22 04/20/22 04/20/22 04/20/22 17:23 18:56 19:30 19:41 Temp 36.3 36.3 Pulse 36 54 53 57 57 Resp 15 18 B/P (MAP) 140/53 (82) 129/42 (71) 153/66 (95) 132/51 (78) 131/47 (75) Pulse Ox 99 99 O2 Delivery Room Air 04/20/22 04/21/22 04/21/22 04/21/22 20:00 00:18 01:00 04:17 Temp 36.7 36.3 Pulse 55 51 50 50 Resp 18 16 B/P (MAP) 105/49 (67) 133/62 (85) Pulse Ox 96 99 O2 Delivery Room Air 04/21/22 04/21/22 04/21/22 04/21/22 07:00 07:50 08:00 11:34 Temp 36.0 36.7 Pulse 52 60 58 Resp 18 18 B/P (MAP) 144/60 (88) 141/63 (89) Pulse Ox 95 95 96 O2 Delivery Room Air Room Air Room Air Capillary Refill : General Appearance: WD/WN, no apparent distress HEENT: PERRL/EOMI Neck: non-tender, full range of motion, supple Respiratory: chest non-tender, lungs clear, normal breath sounds, no respiratory distress, no accessory muscle use Cardiovascular: normal peripheral pulses, no murmur, bradycardia Gastrointestinal: normal bowel sounds, non tender, soft Back: normal inspection, no CVA tenderness, no vertebral tenderness Extremities: normal range of motion, non-tender, normal inspection, no pedal edema, no calf tenderness Neurologic/Psychiatric: 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 She has previously been intolerance to norvasc. (2) Acute kidney injury Status: Acute Assessment & Plan: - Recommend fluid hydration, Cr improved with IVFs, Would recommend repeat as outpatient in 2-4 weeks (3) Urinary tract infection Status: Acute Assessment & Plan: - Culture pending, will d/c on PO antibiotic Qualifiers: Qualified Codes: N30.00 - Acute cystitis without hematuria (4) Non-insulin dependent type 2 diabetes mellitus ELMER JULIAN MD Apr 21, 2022 11:55
--- NOTE | 2022-04-21 11:59 | Discharge Summary ---
Discharge [facility] Reconcile Patient Problems Problems Reviewed?: Yes Discharge Medications New, Converted or Re-Newed RX: Other Changed Medications: Triamterene/Hydrochlorothiazid (Triamterene-Hctz 75-50 mg Tab) 75 Mg-50 Mg Tablet 0.5 EACH PO DAILY for 14 Days, TAB (Changed from: 1 EACH) Continued Medications: Aspirin (Aspirin) 81 Mg Tab.chew 81 MG PO DAILY, TAB.CHEW Atorvastatin Calcium (Atorvastatin Calcium) 40 Mg Tablet 40 MG PO DAILY, TAB Calcium Carbonate (Calcium) 500 Mg Calcium (1250 Mg) Tablet 500 MG PO DAILY, TAB Dapagliflozin Propanediol (Farxiga) 10 Mg Tablet 10 MG PO DAILY, TAB Dulaglutide (Trulicity) 1.5 Mg/0.5 Ml Pen.injctr 1.5 MG SC WEEK INJECTS ON WEDNESDAY Insulin Detemir (Levemir Flextouch) 100 Unit/Ml (3 Ml) Insuln.pen 20 UNITS SC HS Levocetirizine Dihydrochloride (Levocetirizine Dihydrochloride) 5 Mg Tablet 5 MG PO DAILY, TAB Metformin HCl (Metformin HCl) 1,000 Mg Tablet 1000 MG PO DAILY, TAB Multivitamin (Multi-Vitamin Daily) 1 Each Tablet 1 EACH PO DAILY, TAB Naproxen Sodium (Aleve) 220 Mg Tablet 220 MG PO BID, TAB Oxycodone HCl/Acetaminophen (Oxycodone-Acetaminophen 5-325) 5 Mg-325 Mg Tablet 1 EACH PO Q4H PRN for PAIN-MODERATE (5-7), TAB FILLED 04-03-2022 #30/5 DAY SUPPLY Discontinued Medications: Doxazosin Mesylate (Doxazosin Mesylate) 1 Mg Tablet 1 MG PO BID, TAB Patient Instructions Goal/Follow Up Appt: F/u PCP 1-2 weeks Make sure to keep your appt with Dr Amaral in 1 week Patient Instructions: I have decreased your water pill to 1/2 tab daily due to bump in Cr, Recommend PCP repeat your BMP in 2-4 weeks. Make sure to stay well hydrated. Keep track of your blood pressures at home at least 2 times per day and take your readings to your followup appt Activity & Diet Discharge Diet: ADA Diet, Cardiac Diet Activity as Tolerated: Yes ELMER JULIAN MD Apr 21, 2022 11:59
[2022-04-21 13:00] VITALS: BP 141/63
== END 2022-04-21 13:00 | disposition home or self-care (01) ==
LOC: EDUNIT# 17:16 → ER 17:19 → 4TH 18:28
PROVIDERS: ADMIT Internal Medicine; ATTEND Family Medicine
DX: R00.1 Bradycardia, unspecified (principal); R42 Dizziness and giddiness; N17.9 Acute kidney failure, unspecified; N30.00 Acute cystitis without hematuria; I10 Essential (primary) hypertension; I45.10 Unspecified right bundle-branch block; G47.33 Obstructive sleep apnea (adult) (pediatric); E11.40 Type 2 diabetes mellitus with diabetic neuropathy, unspecified; E66.9 Obesity, unspecified; Z87.891 Personal history of nicotine dependence; Z79.84 Long term (current) use of oral hypoglycemic drugs; Z68.35 Body mass index [BMI] 35.0-35.9, adult; Z91.19 Patient's noncompliance with other medical treatment and regimen; Z79.899 Other long term (current) drug therapy
CPT/HCPCS: 36415; 71045; 80048; 80053; 80061; 81000; 83735; 83874; 83880; 84484; 85025; 85610; 85730; 87088; 93005; 93041; 96374; G0378

== ENCOUNTER 2023-08-26 18:51 | Emergency (ER) | payer BC ==
[~2023-08-26] VITALS: Ht 175 cm; Wt 93.7 kg
[~2023-08-26 18:51] MED LIST changes: +ASPI-999 PO; +ATOR40TA70 PO; +CALC-823 PO; +DAPA10TA PO; +DOXA1TAB2 PO; +DULA1.5P2 SC; +INSU100I30 SC; +LEVO5TAB12 PO; +METF-399 PO; +MULT-974 PO; +NAPR220T66 PO; +OXYC1TAB11 PO
[2023-08-26] MEDS: hydrALAZINE INJECTION 20 MG/ML VIAL IV ONE (19:47)
[2023-08-26 19:52] LABS: BASOPHILS % (AUTO) 1 % (0-10); EOSINOPHILS # (AUTO) 0.2 10^3/uL (0.0-0.3); EOSINOPHILS % (AUTO) 2 % (0-10); HEMATOCRIT 41 % (35-52); HEMOGLOBIN 13.6 g/dL (11.5-16.0); LYMPHOCYTES # (AUTO) 2.8 10^3/uL (1.0-4.0); LYMPHOCYTES % (AUTO) 32 % (12-44); MEAN CORPUSCULAR HEMOGLOBIN 28 pg (25-34); MEAN CORPUSCULAR HGB CONC 34 g/dL (32-36); MEAN CORPUSCULAR VOLUME 85 fL (80-99); MEAN PLATELET VOLUME 10.5 fL (9.0-12.2); MONOCYTES # (AUTO) 0.7 10^3/uL (0.0-1.0); MONOCYTES % (AUTO) 8 % (0-12); NEUTROPHILS % (AUTO) 57 % (42-75); PLATELET COUNT 235 10^3/uL (130-400); WHITE BLOOD COUNT 8.7 10^3/uL (4.3-11.0)
--- NOTE | 2023-08-26 19:55 | ED Cardiac General ---
History of Present Illness General Chief Complaint: Cardiac/General Problems Stated Complaint: SENT BY DR MCLAUGHLIN FOR BP ISSUES Nursing Triage Note: CALLED DR MCLAUGHLIN YESTERDAY, BLOODY NOSE COULDN'T GET IT TO STOP. WAS INSTRUCTED TO DOUBLE AMOLIDOPINE TO 10 MG. TOOK MED THIS AM, PATIENT STATES AT 1230 HER PB WAS 200/94. STATES [place], HOT, NOT FEELING WELL TODAY. Source: patient History of Present Illness Date Seen by Provider: Aug 26, 2023 Time Seen by Provider: 19:38 Initial Comments PT ARRIVES VIA POV FROM HOME C/O ELEVATED BLOOD PRESSURE PT STATES HER BLOOD PRESSURE IS "ALWAYS HIGH" STATES BP ROUTINELY IN 160'S SYSTOLIC SHE NEVER CHECKS HER BLOOD PRESSURE AT HOME LAST VISIT TO DR. MCLAUGHLIN WAS 1 1/2 MONTHS AGO, AND WAS 160'S SYSTOLIC AT THAT TIME. SHE HAS BEEN ON AMLODIPINE 5 MG FOR YEARS SHE GOT A NOSEBLEED YESTERDAY/WEDNESDAY MORNING 08/25/23 SO SHE TOOK HER BLOOD PRESSURE AND IT WAS [address] MCLAUGHLIN'S OFFICE YESTERDAY AND THEY TOLD HER TO START TAKING 10 MG AMLODIPINE, WHICH SHE DID AT 0330, WHICH IS HER NORMAL WAKE-UP TIME. SHE TOOK BP AT 1230 TODAY AND IT WAS 200/94 C/O GENERALIZED HEADACHE AND "JUST DOESN'T FEEL GOOD" NO CHEST PAIN NO SHORTNESS OF BREATH NO DIZZINESS NO VISION CHANGES NO PARESTHESIAS OR MOTOR DEFICITS NO NAUSEA/VOMITING NO PALPITATIONS NO SYNCOPE NO INCREASE IN CHRONIC LEG SWELLING. IN ADDITION TO HTN, PT IS ALSO INSULIN DEPENDENT DIABETIC. SHE NEVER CHECKS HER BLOOD SUGAR. SHE DENIES ANY HISTORY OF HEART PROBLEMS AND SHE HAS NEVER HAD A CARDIAC CATH. PCP: DR. MANN AT [facility] PHYSICIAN CREDENTIALING SPECIALIST: DR. MCLAUGHLIN Allergies and Home Medications Allergies Coded Allergies: amoxicillin trihydrate (Unverified Allergy, Unknown, 05/06/11) iodine (Unverified Allergy, Unknown, 05/06/11) Patient Home Medication List Home Medication List Reviewed: Yes Aspirin (Aspirin) 81 Mg Tab.chew, 81 MG PO DAILY, (Reported) Entered as Reported by: DILEEP PETTIT on 04/21/221099 Atorvastatin Calcium (Atorvastatin Calcium) 40 Mg Tablet, 40 MG PO DAILY, (Reported) Entered as Reported by: DILEEP PETTIT on 04/21/22 1100 Calcium Carbonate (Calcium) 500 Mg Calcium (1250 Mg) Tablet, 500 MG PO DAILY, (Reported) Entered as Reported by: DILEEP PETTIT on 04/21/221099 Dapagliflozin Propanediol (Farxiga) 10 Mg Tablet, 10 MG PO DAILY, (Reported) Entered as Reported by: DILEEP PETTIT on 04/21/221099 Dulaglutide (Trulicity) 1.5 Mg/0.5 Ml Pen.injctr, 1.5 MG SC WEEK, (Reported) Entered as Reported by: DILEEP PETTIT on 04/21/221099 Hydralazine HCl (Hydralazine HCl) 10 Mg Tablet, 10 MG PO TID PRN for BLOOD PRESSURE Prescribed by: ANGÉLICA CHANEY on 08/26/232121 Insulin Detemir (Levemir Flextouch) 100 Unit/Ml (3 Ml) Insuln.pen, 20 UNITS SC HS, (Reported) Entered as Reported by: DILEEP PETTIT on 04/21/221099 Levocetirizine Dihydrochloride (Levocetirizine Dihydrochloride) 5 Mg Tablet, 5 MG PO DAILY, (Reported) Entered as Reported by: DILEEP PETTIT on 04/21/221099 Metformin HCl (Metformin HCl) 1,000 Mg Tablet, 1,000 MG PO DAILY, (Reported) Entered as Reported by: DILEEP PETTIT on 04/21/221099 Multivitamin (Multi-Vitamin Daily) 1 Each Tablet, 1 EACH PO DAILY, (Reported) Entered as Reported by: DILEEP PETTIT on 04/21/221099 Naproxen Sodium (Aleve) 220 Mg Tablet, 220 MG PO BID, (Reported) Entered as Reported by: DILEEP PETTIT on 04/21/221099 Oxycodone HCl/Acetaminophen (Oxycodone-Acetaminophen 5-325) 5 Mg-325 Mg Tablet, 1 EACH PO Q4H PRN for PAIN-MODERATE (5-7), (Reported) Entered as Reported by: DILEEP PETTIT on 04/21/221099 Triamterene/Hydrochlorothiazid (Triamterene-Hctz 75-50 mg Tab) 75 Mg-50 Mg Tablet, 0.5 EACH PO DAILY Prescribed by: ELMER JULIAN on 04/21/22 1157 Review of Systems Review of Systems Constitutional: see HPI EENTM: No Symptoms Reported Respiratory: No Symptoms Reported Cardiovascular: See HPI Gastrointestinal: No Symptoms Reported Genitourinary: No Symptoms Reported Musculoskeletal: no symptoms reported Skin: no symptoms reported Psychiatric/Neurological: See HPI, Headache Endocrine: No Symptoms Reported Hematologic/Lymphatic: No Symptoms Reported Past Oyeaklj-Exciln-Ghfzld Hx Patient Social History Tobacco Use?: No Use of E-Cig and/or Vaping dev: No Substance use?: No Alcohol Use?: No Immunizations Up To Date Tetanus Booster (TDap): More than 5yrs PED Vaccines UTD: No Influenza Vaccine Up-to-Date: No; Not Current First/Initial COVID19 Vaccinat: YES Second COVID19 Vaccination Waqas: YES Third COVID19 Vaccination Date: YES Seasonal Allergies Seasonal Allergies: No Past Medical History Surgery/Hospitalization HX: HTN, DIABETIC, Surgeries: Yes (Fx left arm, Fx right ankle, arthroscopy left knee) Orthopedic Respiratory: Yes Sleep Apnea Currently Using CPAP: No Cardiac: Yes (RBBB;LAFB;LVH) High Cholesterol, Hypertension Neurological: No Reproductive Disorders: No Sexually Transmitted Disease: No Genitourinary: No Gastrointestinal: Yes Gastroesophageal Reflux Musculoskeletal: Yes Fractures Endocrine: Yes Diabetes, Insulin dep HEENT: No Cancer: No Psychosocial: No Integumentary: No Blood Disorders: No Family Medical History Cancer 03 FATHER (lung ca) 03 MOTHER (stomach ca) Family history: Cardiovascular disease 03 MOTHER Family history: Diabetes mellitus 09 BROTHER Stroke 03 MOTHER No Pertinent Family Hx Physical Exam Vital Signs Vital Signs - First Documented 08/26/23 19:19 Temp 36.8 Pulse 66 Resp 20 B/P (MAP) 208/74 (118) Pulse Ox 99 O2 Delivery Room Air Capillary Refill : Less Than 3 Seconds Height, Weight, BMI Height: 5'9.00" Weight: 242lbs. 1.0oz. [id number]; 30.00 BMI Method:Stated General Appearance: No Apparent Distress, WD/WN, Other (CONSTANTLY LAUGHING--LITERALLY LAUGHS WITH EVERY QUESTION/ANSWER; DOES NOT APPEAR ILL OR TO BE IN ANY DISCOMFORT OR DISTRESS. ) HEENT: PERRL/EOMI Neck: Normal Inspection Respiratory: Normal Breath Sounds, No Accessory Muscle Use, No Respiratory Distress Cardiovascular: Regular Rate, Rhythm, No Edema, No JVD, No Murmur, Normal Peripheral Pulses Gastrointestinal: Non Tender, Soft Extremity: Normal Capillary Refill, Normal Inspection, Normal Range of Motion, Non Tender, No Calf Tenderness, No Pedal Edema Neurologic/Psychiatric: Alert, Oriented x3, No Motor/Sensory Deficits, Normal Mood/Affect, weight calculator II-XII Norm as Tested; No Abnormal Cerebellar Tests Skin: Normal Color, Warm/Dry Progress/Results/Core Measures Results/Orders Lab Results Laboratory Tests Test 08/26/23 19:40 08/26/23 20:15 08/26/23 20:29 Range/Units White Blood Count 8.7 4.3-11.0 10^3/uL Red Blood Count 4.79 3.80-5.11 10^6/uL Hemoglobin 13.6 11.5-16.0 g/dL Hematocrit 41 35-52 % Mean Corpuscular Volume 85 80-99 fL Mean Corpuscular Hemoglobin 28 25-34 pg Mean Corpuscular Hemoglobin Concent 34 32-36 g/dL Red Cell Distribution Width 13.2 10.0-14.5 % Platelet Count 235 130-400 10^3/uL Mean Platelet Volume 10.5 9.0-12.2 fL Immature Granulocyte % (Auto) 0 % Neutrophils (%) (Auto) 57 42-75 % Lymphocytes (%) (Auto) 32 12-44 % Monocytes (%) (Auto) 8 0-12 % Eosinophils (%) (Auto) 2 0-10 % Basophils (%) (Auto) 1 0-10 % Neutrophils # (Auto) 5.0 1.8-7.8 10^3/uL Lymphocytes # (Auto) 2.8 1.0-4.0 10^3/uL Monocytes # (Auto) 0.7 0.0-1.0 10^3/uL Eosinophils # (Auto) 0.2 0.0-0.3 10^3/uL Basophils # (Auto) 0.0 0.0-0.1 10^3/uL Immature Granulocyte # (Auto) 0.0 0.0-0.1 10^3/uL Prothrombin Time 12.5 12.2-14.7 SEC INR Comment 0.9 0.8-1.4 Activated Partial Thromboplast Time 25 24-35 SEC Sodium Level 139 135-145 MMOL/L Potassium Level 3.7 3.6-5.0 MMOL/L Chloride Level 104 98-107 MMOL/L Carbon Dioxide Level 22 21-32 MMOL/L Anion Gap 13 5-14 MMOL/L Blood Urea Nitrogen 24 H 7-18 MG/DL Creatinine 1.23 0.60-1.30 MG/DL Estimat Glomerular Filtration Rate 49 BUN/Creatinine Ratio 20 Glucose Level 230 H 70-105 MG/DL Calcium Level 9.8 8.5-10.1 MG/DL Corrected Calcium 9.6 8.5-10.1 MG/DL Magnesium Level 2.2 1.6-2.4 MG/DL Total Bilirubin 0.6 0.1-1.0 MG/DL Aspartate Amino Transf (AST/SGOT) 21 5-34 U/L Alanine Aminotransferase (ALT/SGPT) 27 0-55 U/L Alkaline Phosphatase 118 40-136 U/L Troponin I < 0.028 <0.028 NG/ML B-Type Natriuretic Peptide 22.1 <100.0 PG/ML Total Protein 7.6 6.4-8.2 GM/DL Albumin 4.2 3.2-4.5 GM/DL TSH Bent Testing 2.32 0.35-4.94 UIU/ML Urine Color YELLOW Urine Clarity CLEAR Urine pH 7.0 5-9 Urine Specific [place] 1.015 L 1.016-1.022 Urine Protein 3+ H NEGATIVE Urine Glucose (UA) 3+ H NEGATIVE Urine Ketones NEGATIVE NEGATIVE Urine Nitrite NEGATIVE NEGATIVE Urine Bilirubin NEGATIVE NEGATIVE Urine Urobilinogen 0.2 < = 1.0 MG/DL Urine Leukocyte Esterase NEGATIVE NEGATIVE Urine RBC (Auto) NEGATIVE NEGATIVE Urine RBC NONE /HPF Urine WBC 5-10 H /HPF Urine Squamous Epithelial Cells RARE /HPF Urine Crystals NONE /LPF Urine Bacteria TRACE /HPF Urine Casts NONE /LPF Urine Mucus NEGATIVE /LPF Urine Culture Indicated NO Influenza Type A (RT-PCR) Not Detected Not Detecte Influenza Type B (RT-PCR) Not Detected Not Detecte SARS-CoV-2 RNA (RT-PCR) Not Detected Not Detecte My Orders Orders - ANGÉLICA CHANEY DO Ed Iv/Invasive Line Start (08/26/23 19:38) Ekg Tracing (08/26/23 19:38) Monitor-Rhythm Ecg Trace Only (08/26/23 19:38) Bnp Cameron (08/26/23 19:38) Cbc And Automated Diff (08/26/23 19:38) Comprehensive Metabolic Panel (08/26/23 19:38) Magnesium (08/26/23 19:38) Protime With Inr (08/26/23 19:38) Partial Thromboplastin Time (08/26/23 19:38) Thyroid Analyzer (08/26/23 19:38) Ua Culture If Indicated (08/26/23 19:38) Troponin I Cameron (08/26/23 19:38) Chest 1 View, Ap/Pa Only (08/26/23 19:38) Hydralazine Injection (Hydralazine Injec (08/26/23 19:45) Covid 19 Inhouse Test (08/26/23 19:50) Influenza A And B By Pcr (08/26/23 19:50) Hydralazine Tablet (Hydralazine Tablet (08/26/23 21:45) Medications Given in ED Current Medications Medications Dose Ordered Sig/Chetna Route Start Time Stop Time Status Last Admin Dose Admin Hydralazine HCl 10 mg ONCE ONCE IV 08/26/23 19:45 08/26/23 19:46 DC 08/26/23 19:47 10 MG Hydralazine HCl 10 mg ONCE ONCE PO 08/26/23 21:45 08/26/23 21:46 DC 08/26/23 21:49 10 MG Vital Signs/I&O 08/26/23 08/26/23 19:19 21:27 Temp 36.8 36.5 Pulse 66 64 Resp 20 14 B/P (MAP) 208/74 (118) 163/61 Pulse Ox 99 96 O2 Delivery Room Air Room Air Blood Pressure Mean: 118 Progress Progress Note : Progress Note VITALS ON ARRIVAL: TEMP 36.8=98.2, HR 66, RR 20, BP 208/74, O2 SAT 99% ON ROOM AIR GIVEN: -HYDRALAZINE LABS: -CBC NORMAL -CMP WITH BUN 24, CR 1.23, GLU 23O, OTHERWISE NORMAL -MG 2.2 -TROPONIN NEGATIVE -BNP NORMAL -TSHJ 2.32 -PT/PTT/INR NORMAL -UA 3+ PROTEIN, 3+ GLUCOSE, 5-10 WBC -COVID/FLU NEGATIVE EKG UNREMARKABLE CXR UNREMARKABLE MARKED DELAY IN OBTAINING LAB RESULTS. BP DOWN TO 160'S/60'S AT DISMISSAL AND HEADACHE IS GONE DISCUSSED TEST RESULTS, ANTICIPATED COURSE, MEDICATIONS, NEED FOR FOLLOW UP AND RETURN PRECAUTIONS REVIEWED PRIOR RECORDS, INCLUDING ER VISITS, ADMITS/H&P'S/CONSULTS/DISCHARGE SUMMARIES, TESTS/PROCEDURES Initial ECG Impression Date: Aug 26, 2023 Initial ECG Impression Time: 20:01 Initial ECG Rate: 63 Initial ECG Rhythm: Normal Sinus (RBBB, LAFB; LVH) Initial ECG Intervals NH 178 QRS 162 QT/QTC 460/468 Initial ECG Comparisson: Unchanged Comment INTERPRETED BY ME Diagnostic Imaging Comments CXR--PER RADIOLOGIST REPORT: FINDINGS: Lungs/pleura: There is mild left lung base atelectasis and mild elevation left hemidiaphragm. Otherwise, lungs are clear. There is no pneumothorax. There is no pleural effusion. Mediastinum: Unremarkable. Pulmonary vasculature: Unremarkable. Heart: Unremarkable. Bones/extrathoracic soft tissue: There are degenerative spurs involving the thoracic spine. IMPRESSION: There is mild left basilar atelectasis and mild elevation left hemidiaphragm. There is no radiographic evidence of acute cardiopulmonary process. Reviewed: Reviewed by Me Departure Impression Primary Impression: Hypertensive urgency Additional Impression: Uncontrolled diabetes mellitus Disposition: HOME, SELF-CARE Condition: Improved Departure-Patient Inst. Decision time for Depature: 21:20 Referrals: [facility] (PCP/Family) Primary Care Physician BENITA MCLAUGHLIN MD FACP FAC CCDS Patient Instructions: DASH Diet, DIABETES, High Blood Pressure (DC) Add. Discharge Instructions: CONTINUE AMLODIPINE 10 MG DAILY LOW SODIUM DIET FOLLOW UP WITH DR. MCLAUGHLIN NEXT WEEK FOR FURTHER CARE RETURN TO ER IF SYMPTOMS WORSEN All discharge instructions reviewed with patient and/or family. Voiced understanding. Scripts Hydralazine HCl (Hydralazine HCl) 10 Mg Tablet 10 MG PO TID PRN for BLOOD PRESSURE, #15 TAB TAKE NEEDED THREE TIMES A DAY FOR SYSTOLIC BP > 160 OR DIASTOLIC BP > 100 Prov: ANGÉLICA CHANEY DO 08/26/23 ANGÉLICA CHANEY DO Aug 26, 2023 19:55
[2023-08-26 20:07] LABS: ALANINE AMINOTRANSFERASE 27 U/L (0-55); ALBUMIN 4.2 GM/DL (3.2-4.5); ALKALINE PHOSPHATASE 118 U/L (40-136); BILIRUBIN,TOTAL 0.6 MG/DL (0.1-1.0); BUN/CREATININE RATIO 20; CALCIUM 9.8 MG/DL (8.5-10.1); CARBON DIOXIDE 22 MMOL/L (21-32); CHLORIDE 104 MMOL/L (98-107); CREATININE SERUM 1.23 MG/DL (0.60-1.30); GFR ESTIMATED 49; GLUCOSE 230 MG/DL (70-105); MAGNESIUM 2.2 MG/DL (1.6-2.4); POTASSIUM 3.7 MMOL/L (3.6-5.0); SODIUM 139 MMOL/L (135-145); TOTAL PROTEIN 7.6 GM/DL (6.4-8.2)
[2023-08-26 20:12] LABS: INR 0.9 (0.8-1.4); PROTHROMBIN TIME PATIENT 12.5 SEC (12.2-14.7)
--- NOTE | 2023-08-26 20:21 | Diagnostic Imaging Report ---
CLINICAL INDICATIONS: Patient with chest pain. EXAM: Portable chest x-ray upright view. COMPARISON: Chest x-ray dated 04/20/2022. FINDINGS: Lungs/pleura: There is mild left lung base atelectasis and mild elevation left hemidiaphragm. Otherwise, lungs are clear. There is no pneumothorax. There is no pleural effusion. Mediastinum: Unremarkable. Pulmonary vasculature: Unremarkable. Heart: Unremarkable. Bones/extrathoracic soft tissue: There are degenerative spurs involving the thoracic spine. IMPRESSION: There is mild left basilar atelectasis and mild elevation left hemidiaphragm. There is no radiographic evidence of acute cardiopulmonary process. Dictated by: Dictated on workstation # [id number]
[2023-08-26 20:49] LABS: BACTERIA,URINE TRACE /HPF; BILIRUBIN,URINE NEGATIVE (NEGATIVE); CLARITY,URINE CLEAR; COLOR,URINE YELLOW; GLUCOSE, URINE (UA) 3+ (NEGATIVE); KETONES,URINE NEGATIVE (NEGATIVE); LEUKOCYTE ESTERASE ,URINE NEGATIVE (NEGATIVE); NITRITE,URINE NEGATIVE (NEGATIVE); PROTEIN,URINE 3+ (NEGATIVE); SQUAMOUS EPITHELIAL CELL,UR RARE /HPF
[2023-08-26] MEDS ORDERED: HYDR-3922 PO (21:22)
[2023-08-26 21:27] VITALS: BP 163/61
[2023-08-26 21:31] LABS: TSH (THYROID ANALYZER) 2.32 UIU/ML (0.35-4.94)
[2023-08-26] MEDS: hydrALAZINE 10 MG TABLET PO ONE (21:49)
== END 2023-08-26 21:49 | disposition home or self-care (01) ==
LOC: EDUNIT# 18:51 → ER 18:53
DX: I16.0 Hypertensive urgency (principal); E11.9 Type 2 diabetes mellitus without complications; Z20.822 Contact with and (suspected) exposure to COVID-19; Z79.4 Long term (current) use of insulin
CPT/HCPCS: 36415; 71045; 80053; 81000; 83735; 83880; 84443; 84484; 85025; 85610; 85730; 87636; 93005; 93041

== ENCOUNTER 2023-09-04 09:23 | Emergency (ER) | payer BC, MEDICARE, OTHER ==
[~2023-09-04] VITALS: Ht 175 cm; Wt 91.0 kg
[~2023-09-04 09:23] MED LIST changes: +HYDR-3922 PO
[2023-09-04 09:53] LABS: BASOPHILS % (AUTO) 0 % (0-10); EOSINOPHILS # (AUTO) 0.2 10^3/uL (0.0-0.3); EOSINOPHILS % (AUTO) 2 % (0-10); HEMATOCRIT 40 % (35-52); HEMOGLOBIN 13.3 g/dL (11.5-16.0); LYMPHOCYTES # (AUTO) 1.9 10^3/uL (1.0-4.0); LYMPHOCYTES % (AUTO) 25 % (12-44); MEAN CORPUSCULAR HEMOGLOBIN 29 pg (25-34); MEAN CORPUSCULAR HGB CONC 33 g/dL (32-36); MEAN CORPUSCULAR VOLUME 87 fL (80-99); MEAN PLATELET VOLUME 10.8 fL (9.0-12.2); MONOCYTES # (AUTO) 0.5 10^3/uL (0.0-1.0); MONOCYTES % (AUTO) 6 % (0-12); NEUTROPHILS # (AUTO) 5.2 10^3/uL (1.8-7.8); NEUTROPHILS % (AUTO) 67 % (42-75); PLATELET COUNT 239 10^3/uL (130-400); WHITE BLOOD COUNT 7.8 10^3/uL (4.3-11.0)
[2023-09-04 10:07] LABS: INR 0.9 (0.8-1.4); PROTHROMBIN TIME PATIENT 12.5 SEC (12.2-14.7)
[2023-09-04 10:08] LABS: ALBUMIN 4.1 GM/DL (3.2-4.5); CHLORIDE 104 MMOL/L (98-107); POTASSIUM 4.1 MMOL/L (3.6-5.0); SODIUM 137 MMOL/L (135-145)
[2023-09-04 10:09] LABS: CALCIUM 9.6 MG/DL (8.5-10.1)
[2023-09-04 10:10] LABS: GLUCOSE 321 MG/DL (70-105)
[2023-09-04 10:11] LABS: TOTAL PROTEIN 7.5 GM/DL (6.4-8.2)
[2023-09-04 10:12] LABS: BILIRUBIN,TOTAL 1.1 MG/DL (0.1-1.0); CARBON DIOXIDE 19 MMOL/L (21-32)
[2023-09-04 10:14] LABS: ALKALINE PHOSPHATASE 114 U/L (40-136); GFR ESTIMATED 51
[2023-09-04 10:15] LABS: BUN/CREATININE RATIO 19
[2023-09-04 10:17] LABS: ALANINE AMINOTRANSFERASE 19 U/L (0-55); MAGNESIUM 2.1 MG/DL (1.6-2.4)
--- NOTE | 2023-09-04 10:33 | Diagnostic Imaging Report ---
Indication: Chest pain. Time of Exam: 10:30 AM Correlation is made with prior chest 08/26/2023. Findings: The heart size is normal. The pulmonary vascularity is unremarkable. The lungs are clear. No infiltrate, effusion or pneumothorax is detected. Impression: No acute cardiopulmonary process is detected. Dictated by: Dictated on workstation # [id number]
[2023-09-04 11:00] LABS: FREE T4 (FREE THYROXINE) 1.06 NG/DL (0.70-1.48)
--- NOTE | 2023-09-04 11:00 | ED Chest Pain ---
General Chief Complaint: Chest Pain Stated Complaint: ELEVATED BP Nursing Triage Note: PT TO ED W/ C/O ELEVATED BP W/ CP ET RT ARM PAIN. PT HAS RECORD OF BP STARTING AROUND 0600 THIS AM, CHECKING IT EVERY 30 MIN UNTIL ARRIVING IN ED. REPORTS HAS TAKEN MEDICATION TO HELP W/ BP PER DR'S RECOMMENDATION. NO OTHER C/O VOICED Source: patient Exam Limitations: no limitations History of Present Illness Date Seen by Provider: Sep 04, 2023 Time Seen by Provider: 10:11 Initial Comments This 62 year old woman presents to the ER by private vehicle with concerns about hypertensive exacerbation and chest pain. She presents a log of pressures that reports systolic blood pressures ranging from 153-195 diastolic blood pressures from 77-89. She reports frequently having markedly elevated blood pressures in the morning that improves throughout the day. She is currently taking amlodipine 10 mg in the morning, losartan 100 mg in the morning, doxazosin in the evening, and hydralazine 10 mg 3 times daily as needed. She took her usual morning medications in addition to hydralazine. She reports some brief mild chest pain when her blood pressure was at its peak. Review of her chart reveals a cardiac catheterization in 2016 revealing no obstructive coronary artery disease. She denies any excessive salt consumption or stimulant use. Allergies and Home Medications Allergies Coded Allergies: amoxicillin trihydrate (Unverified Allergy, Unknown, 05/06/11) iodine (Unverified Allergy, Unknown, 05/06/11) Patient Home Medication List Home Medication List Reviewed: Yes Aspirin (Aspirin) 81 Mg Tab.chew, 81 MG PO DAILY, (Reported) Entered as Reported by: DILEEP PETTIT on 04/21/221099 Atorvastatin Calcium (Atorvastatin Calcium) 40 Mg Tablet, 40 MG PO DAILY, (Reported) Entered as Reported by: DILEEP PETTIT on 04/21/221099 Calcium Carbonate (Calcium) 500 Mg Calcium (1250 Mg) Tablet, 500 MG PO DAILY, (Reported) Entered as Reported by: DILEEP PETTIT on 04/21/221099 Dapagliflozin Propanediol (Farxiga) 10 Mg Tablet, 10 MG PO DAILY, (Reported) Entered as Reported by: DILEEP PETTIT on 04/21/221099 Dulaglutide (Trulicity) 1.5 Mg/0.5 Ml Pen.injctr, 1.5 MG SC WEEK, (Reported) Entered as Reported by: DILEEP PETTIT on 04/21/221099 Hydralazine HCl (Hydralazine HCl) 10 Mg Tablet, 10 MG PO TID PRN for BLOOD PRESSURE Prescribed by: ANGÉLICA CHANEY on 08/26/232121 Insulin Detemir (Levemir Flextouch) 100 Unit/Ml (3 Ml) Insuln.pen, 20 UNITS SC HS, (Reported) Entered as Reported by: DILEEP PETTIT on 04/21/221099 Levocetirizine Dihydrochloride (Levocetirizine Dihydrochloride) 5 Mg Tablet, 5 MG PO DAILY, (Reported) Entered as Reported by: DILEEP PETTIT on 04/21/221099 Metformin HCl (Metformin HCl) 1,000 Mg Tablet, 1,000 MG PO DAILY, (Reported) Entered as Reported by: DILEEP PETTIT on 04/21/221099 Multivitamin (Multi-Vitamin Daily) 1 Each Tablet, 1 EACH PO DAILY, (Reported) Entered as Reported by: DILEEP PETTIT on 04/21/221099 Naproxen Sodium (Aleve) 220 Mg Tablet, 220 MG PO BID, (Reported) Entered as Reported by: DILEEP PETTIT on 04/21/221099 Oxycodone HCl/Acetaminophen (Oxycodone-Acetaminophen 5-325) 5 Mg-325 Mg Tablet, 1 EACH PO Q4H PRN for PAIN-MODERATE (5-7), (Reported) Entered as Reported by: DILEEP PETTIT on 04/21/221099 Triamterene/Hydrochlorothiazid (Triamterene-Hctz 75-50 mg Tab) 75 Mg-50 Mg Tablet, 0.5 EACH PO DAILY Prescribed by: ELMER JULIAN on 04/21/22 1157 Review of Systems Review of Systems Constitutional: no symptoms reported EENTM: No Symptoms Reported Respiratory: No Symptoms Reported Cardiovascular: See HPI Gastrointestinal: No Symptoms Reported Genitourinary: No Symptoms Reported Musculoskeletal: no symptoms reported Skin: no symptoms reported Psychiatric/Neurological: No Symptoms Reported Endocrine: No Symptoms Reported Hematologic/Lymphatic: No Symptoms Reported Past Mvjooim-Edkuti-Bpqkjg Hx Patient Social History Tobacco Use?: No Use of E-Cig and/or Vaping dev: No Substance use?: No Alcohol Use?: No Pt feels they are or have been: No Immunizations Up To Date Tetanus Booster (TDap): More than 5yrs PED Vaccines UTD: No First/Initial COVID19 Vaccinat: YES Second COVID19 Vaccination Waqas: YES Third COVID19 Vaccination Date: YES Seasonal Allergies Seasonal Allergies: No Past Medical History Surgery/Hospitalization HX: HTN, DIABETIC, Surgeries: Yes (Fx left arm, Fx right ankle, arthroscopy left knee) Cardiac (Cath 2017 with no CAD), Orthopedic Respiratory: Yes Sleep Apnea Currently Using CPAP: No Cardiac: Yes (RBBB;LAFB;LVH) High Cholesterol, Hypertension Neurological: No Reproductive Disorders: No Sexually Transmitted Disease: No Genitourinary: No Gastrointestinal: Yes Gastroesophageal Reflux Musculoskeletal: Yes Fractures Endocrine: Yes Diabetes, Insulin dep HEENT: No Cancer: No Psychosocial: No Integumentary: No Blood Disorders: No Family Medical History Cancer 03 FATHER (lung ca) 03 MOTHER (stomach ca) Family history: Cardiovascular disease 03 MOTHER Family history: Diabetes mellitus 09 BROTHER Stroke 03 MOTHER No Pertinent Family Hx Physical Exam Vital Signs Vital Signs - First Documented 09/04/23 09:30 Temp 36.9 Pulse 68 Resp 16 B/P (MAP) 164/57 (92) Pulse Ox 96 O2 Delivery Room Air Capillary Refill : Less Than 3 Seconds Height, Weight, BMI Height: 5'9.00" Weight: 242lbs. 1.0oz. 109.041966lk; 29.00 BMI Method:Stated General Appearance: No Apparent Distress HEENT: PERRL/EOMI, Normal ENT Inspection Neck: Normal Inspection; No JVD Respiratory: Chest Non Tender, Lungs Clear, Normal Breath Sounds, No Accessory Muscle Use Cardiovascular: Regular Rate, Rhythm, No Murmur, Other (mild LE edema) Gastrointestinal: Normal Bowel Sounds, Non Tender, Soft Extremity: Normal Inspection, Non Tender, Other (Mild LE edema) Neurologic/Psychiatric: Alert, Oriented x3, No Motor/Sensory Deficits, Normal Mood/Affect Skin: Normal Color, Warm/Dry Progress/Results/Core Measures Results/Orders Lab Results Laboratory Tests Test 09/04/23 09:38 09/04/23 11:35 Range/Units White Blood Count 7.8 4.3-11.0 10^3/uL Red Blood Count 4.61 3.80-5.11 10^6/uL Hemoglobin 13.3 11.5-16.0 g/dL Hematocrit 40 35-52 % Mean Corpuscular Volume 87 80-99 fL Mean Corpuscular Hemoglobin 29 25-34 pg Mean Corpuscular Hemoglobin Concent 33 32-36 g/dL Red Cell Distribution Width 13.0 10.0-14.5 % Platelet Count 239 130-400 10^3/uL Mean Platelet Volume 10.8 9.0-12.2 fL Immature Granulocyte % (Auto) 0 % Neutrophils (%) (Auto) 67 42-75 % Lymphocytes (%) (Auto) 25 12-44 % Monocytes (%) (Auto) 6 0-12 % Eosinophils (%) (Auto) 2 0-10 % Basophils (%) (Auto) 0 0-10 % Neutrophils # (Auto) 5.2 1.8-7.8 10^3/uL Lymphocytes # (Auto) 1.9 1.0-4.0 10^3/uL Monocytes # (Auto) 0.5 0.0-1.0 10^3/uL Eosinophils # (Auto) 0.2 0.0-0.3 10^3/uL Basophils # (Auto) 0.0 0.0-0.1 10^3/uL Immature Granulocyte # (Auto) 0.0 0.0-0.1 10^3/uL Prothrombin Time 12.5 12.2-14.7 SEC INR Comment 0.9 0.8-1.4 Activated Partial Thromboplast Time 30 24-35 SEC Sodium Level 137 135-145 MMOL/L Potassium Level 4.1 3.6-5.0 MMOL/L Chloride Level 104 98-107 MMOL/L Carbon Dioxide Level 19 L 21-32 MMOL/L Anion Gap 14 5-14 MMOL/L Blood Urea Nitrogen 23 H 7-18 MG/DL Creatinine 1.20 0.60-1.30 MG/DL Estimat Glomerular Filtration Rate 51 BUN/Creatinine Ratio 19 Glucose Level 321 H 70-105 MG/DL Calcium Level 9.6 8.5-10.1 MG/DL Corrected Calcium 9.5 8.5-10.1 MG/DL Magnesium Level 2.1 1.6-2.4 MG/DL Total Bilirubin 1.1 H 0.1-1.0 MG/DL Aspartate Amino Transf (AST/SGOT) 25 5-34 U/L Alanine Aminotransferase (ALT/SGPT) 19 0-55 U/L Alkaline Phosphatase 114 40-136 U/L Myoglobin 39.4 10.0-92.0 NG/ML Troponin I < 0.028 < 0.028 <0.028 NG/ML Total Protein 7.5 6.4-8.2 GM/DL Albumin 4.1 3.2-4.5 GM/DL Thyroid Stimulating Hormone (TSH) 1.19 0.35-4.94 UIU/ML Free Thyroxine 1.06 0.70-1.48 NG/DL My Orders Orders - CHACE COPELAND MD Ekg Tracing (09/04/23 09:43) Cbc And Automated Diff (09/04/23 09:47) Magnesium (09/04/23 09:47) Chest 1 View, Ap/Pa Only (09/04/23 09:47) Comprehensive Metabolic Panel (09/04/23 09:47) Myoglobin Serum (09/04/23 09:47) Protime With Inr (09/04/23 09:47) Partial Thromboplastin Time (09/04/23 09:47) O2 (09/04/23 09:47) Monitor-Rhythm Ecg Trace Only (09/04/23 09:47) Ed Iv/Invasive Line Start (09/04/23 09:47) Troponin I [place] (09/04/23 09:47) Thyroid Stimulating Hormone (09/04/23 10:23) Free T4 (Free Thyroxine) (09/04/23 10:23) Troponin I [place] (09/04/23 11:30) Vital Signs/I&O 09/04/23 09/04/23 09:30 12:56 Temp 36.9 Pulse 68 57 Resp 16 16 B/P (MAP) 164/57 (92) 138/67 Pulse Ox 96 98 O2 Delivery Room Air Room Air Blood Pressure Mean: 92 Progress Progress Note : Progress Note Patient was interviewed and examined. Blood pressure trended downward toward acceptable levels without any intervention in the ER. Labs were obtained, reviewed, and interpreted by me. CBC was unremarkable. Coag panel was normal. BMP was notable for glucose of 321 and was otherwise negative for any clinically relevant abnormalities. Thyroid studies including TSH and free T4 were normal. Troponin was negative. Her pain had started at 0730 and a 4-hour troponin was also negative. Patient had no further occurrences of chest pain. 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 I suggested changing losartan to the evening or splitting it with 50 mg in the morning and 50 mg in the evening. I also suggested that she be evaluated for sleep apnea and treated if necessary. Patient does believe she has sleep apnea but has not pursued treatment. There is some sort of a problem with processing her testing and or CPAP treatment. I encouraged her to follow-up with her primary care provider regarding this matter. See discharge instructions for further discussion. Initial ECG Impression Date: Sep 04, 2023 Initial ECG Impression Time: 09:44 Initial ECG Rate: 60 Initial ECG Rhythm: Normal Sinus Comment Sinus rhythm with no ST elevation or depression. Right bundle branch block with LVH. Diagnostic Imaging Diagonstic Imaging: Xray Plain Films/CT/US/NM/MRI: chest Comments NAME: KASSIE VEGA [facility] REC#: [id number] PT STATUS: DEP ER : 1960 PHYSICIAN: CHACE COPELAND MD ADMIT DATE: 09/04/23/ER Signed Date of Exam:09/04/23 CHEST 1 VIEW, AP/PA ONLY Indication: Chest pain. Time of Exam: 10:30 AM Correlation is made with prior chest 08/26/2023. Findings: The heart size is normal. The pulmonary vascularity is unremarkable. The lungs are clear. No infiltrate, effusion or pneumothorax is detected. Impression: No acute cardiopulmonary process is detected. Dictated by: Dictated on workstation # [id number] Dict: 09/04/23 1029 Trans: 09/04/23 1643 CV [id number] Interpreted by: CLINTON OSPINA MD Electronically signed by: CLINTON OSPINA MD 09/04/23 1643 Departure Impression Primary Impression: Labile hypertension Additional Impression: Chest pain Qualified Codes: R07.9 - Chest pain, unspecified Disposition: 01 HOME, SELF-CARE Condition: Stable Departure-Patient Inst. Decision time for Depature: 12:45 Referrals: [facility] [place] (PCP/Family) Primary Care Physician Patient Instructions: High Blood Pressure ED Add. Discharge Instructions: You may be able to smooth out your exacerbations of high blood pressure in the morning by taking losartan at night instead of in the morning. You may also try splitting up your losartan dose by taking 50 mg in the morning and 50 mg in the evening. Untreated sleep apnea could also cause fluctuations in your blood pressure. Consider discussing sleep apnea with Dr. Mann again and potentially treating with CPAP or similar measure. Avoid things that could exacerbate blood pressure such as excessive salt or stimulants like caffeine, diet pills, decongestant medicines, etc. Continue to drink plenty of water. Return to the ER if you have worsening symptoms despite following these instructions. All discharge instructions reviewed with patient and/or family. Voiced understanding. Copy Copies To 1: GIA MANN V DO Copies To 2: BENITA MCLAUGHLIN MD FACP [facility] CHACE COPELAND MD Sep 04, 2023 11:00
[2023-09-04 12:56] VITALS: BP 138/67
== END 2023-09-04 12:56 | disposition home or self-care (01) ==
LOC: EDUNIT# 09:23 → ER 09:25
DX: R07.89 Other chest pain (principal); R09.89 Other specified symptoms and signs involving the circulatory and respiratory systems; I10 Essential (primary) hypertension; Z79.899 Other long term (current) drug therapy
CPT/HCPCS: 36415; 71045; 80053; 83735; 83874; 84439; 84443; 84484; 85025; 85610; 85730; 93005; 93041